=== PATIENT | female | born 1950 | race Caucasian/White ===

== ENCOUNTER 2016-12-15 17:58 | Emergency (ER) | payer MEDICARE, OTHER ==
[2016-12-15] MEDS ORDERED: diltiaZEM INJ 5 MG/ML VIAL IVP STA (18:23)
[2016-12-15] MEDS ORDERED: diltiaZEM INJ 5 MG/ML VIAL ONE (18:24)
[2016-12-15 18:35] LABS: BASOPHILS # (AUTO) 0.1 10^3/uL (0.0-0.1); EOSINOPHILS # (AUTO) 0.1 10^3/uL (0.0-0.7); EOSINOPHILS % (AUTO) 1.5 %; HGB - HEMOGLOBIN 14.4 g/dL (12.0-16.0); LYMPHOCYTES # (AUTO) 2.4 10^3/uL (1.5-3.5); LYMPHOCYTES % (AUTO) 26.4 %; MEAN CORPUSCULAR HGB CONC 33.5 g/dL (32.0-36.0); MEAN CORPUSCULAR VOLUME 98.6 fL (81.0-99.0); MEAN PLATELET VOLUME 8.4 fL (7.9-10.8); MONOCYTES # (AUTO) 0.8 10^3/uL (0.0-1.0); MONOCYTES % (AUTO) 8.2 %; NEUTROPHILS # (AUTO) 5.8 10^3/uL (1.5-6.6); NEUTROPHILS % (AUTO) 62.9 %; RED BLOOD COUNT 4.36 10^6/uL (4.20-5.40); RED CELL DISTRIBUTION WIDTH 12.8 % (12.0-15.0); UNCORRECTED WHITE BLOOD COUNT 9.2 x10^3/uL; WHITE BLOOD COUNT 9.2 x10^3/uL (4.8-10.8)
[2016-12-15 18:48] LABS: ALBUMIN/GLOBULIN RATIO 1.5 (1.0-2.2); BILIRUBIN,TOTAL 0.7 mg/dL (0.2-1.0); CALCIUM 9.6 mg/dL (8.5-10.3); CREATININE 0.8 mg/dL (0.4-1.0); POTASSIUM 3.5 mmol/L (3.5-5.0)
[2016-12-15] MEDS ORDERED: diltiaZEM INJ 125 MG in DEXTROSE 5% 100 ML IV STA (18:56)
--- NOTE | 2016-12-15 18:57 | ED Physician Documentation ---
PD HPI CHEST PAIN - Stated complaint Stated Complaint: CHEST PX - Chief complaint Chief Complaint: Cardiac - History obtained from History obtained from: Patient, Family - History of Present Illness Timing - onset: Today Timing - onset during: Rest Timing - duration: Hours (1.5) Timing - details: Abrupt onset Pain level max: 8 Pain level now: 8 Quality: Aching, Dull, Pain Radiation: Jaw, Neck Improved by: Nothing Worsened by: Other (nothing) Associated symptoms: Feeling faint / dizzy. No: Shortness of air, Diaphoresis, Nausea, Vomiting, General Weakness, Palpitations Similar symptoms before: Has not had sx before Recently seen: Not recently seen Review of Systems Ten Systems: 10 systems reviewed and negative Constitutional: denies: Fever, Chills Nose: denies: Rhinorrhea / runny nose, Congestion Throat: denies: Sore throat Cardiac: reports: Chest pain / pressure, Palpitations GI: denies: Abdominal Pain, Nausea, Vomiting, Diarrhea Skin: denies: Rash Musculoskeletal: denies: Neck pain, Back pain Neurologic: denies: Focal weakness, Numbness, Headache PD PAST MEDICAL HISTORY - Past Medical History Past Medical History: Yes Cardiovascular: Hypertension Respiratory: COPD - Past Surgical History Past Surgical History: No Ortho: Other - Present Medications Home Medications: Ambulatory Orders Medication Instructions Recorded Confirmed Atenolol 50 mg PO DAILY 10/28/13 10/13/15 Levothyroxine [Synthroid] 25 mg PO DAILY 10/28/13 10/13/15 Diltiazem HCl [Diltiazem ER] 240 mg PO 12/15/16 Losartan Potassium 50 mg PO DAILY 12/15/16 12/15/16 - Allergies Allergies/Adverse Reactions: Allergies Allergy/AdvReac Type Severity Reaction Status Date / Time erythromycin base Allergy Unknown Verified 10/13/15 17:24 codeine AdvReac Intermediate Rash Verified 10/28/13 19:57 - Social History Does the pt smoke?: No Smoking Status: Never smoker Does the pt drink ETOH?: Yes Does the pt have substance abuse?: No - Immunizations Immunizations are current?: No Immunizations: TDAP >10years/unknown PD ED PE NORMAL - Vitals Vital signs reviewed: Yes - General General: Alert and oriented X 3, No acute distress - HEENT HEENT: Moist mucous membranes - Neck Neck: Supple, no meningeal sign - Cardiac Cardiac: Strong equal pulses, Other (tachycardic) - Respiratory Respiratory: No respiratory distress, Clear bilaterally - Abdomen Abdomen: Soft, Non tender, Non distended - Back Back: No spinal TTP - Derm Derm: Warm and dry - Extremities Extremities: No edema, No calf tenderness / cord - Neuro Neuro: Alert and oriented X 3 - Psych Psych: Normal mood, Normal affect Results - Vitals Vitals: Vital Signs - 24 hr 12/15/16 12/15/16 12/15/16 18:14 19:41 19:58 Temperature 97.9 C H Heart Rate 118 H 142 H 151 H Respiratory 18 18 Rate Blood Pressure 170/119 H 149/93 H 154/106 H O2 Saturation 97 95 12/15/16 21:42 Temperature Heart Rate 89 Respiratory 18 Rate Blood Pressure 163/90 H O2 Saturation 96 Oxygen O2 Source Room air - EKG (time done) 1812 Rate: Rate (enter#) (185) Rhythm: Atrial fibrillation (RVR) QRS: LVH Ischemia: Other (repol abnormalities) Computer interpretation: Agree with computer 2202 Rate: Rate (enter#) (89) Rhythm: NSR [place]: LAD Intervals: Normal RI QRS: LVH Ischemia: Normal ST segments Computer interpretation: Agree with computer - Labs Labs: Laboratory Tests 12/15/16 12/15/16 12/15/16 18:25 18:25 18:25 WBC 9.2 RBC 4.36 Hgb 14.4 Hct 43.0 MCV 98.6 MCH 33.0 H MCHC 33.5 RDW 12.8 Plt Count 228 MPV 8.4 Neut # 5.8 Lymph # 2.4 [place] # 0.8 Eos # 0.1 Baso # 0.1 Absolute Nucleated RBC 0.00 Nucleated RBCs 0.0 Sodium 136 Potassium 3.5 Chloride 102 Carbon Dioxide 22 Anion Gap 12.0 BUN 21 H Creatinine 0.8 Estimated GFR (MDRD) 72 L Glucose 112 H Calcium 9.6 Total Bilirubin 0.7 AST 22 ALT 14 Alkaline Phosphatase 63 Troponin I < 0.04 Total Protein 7.0 Albumin 4.2 Globulin 2.8 Albumin/Globulin Ratio 1.5 Lipase 37 - Rads (name of study) cxr Radiology: Prelim report reviewed, EMP read contemporaneously, See rad report ( No acute cardiopulmonary disease seen. ) PD MEDICAL DECISION MAKING - ED course Complexity details: reviewed results, re-evaluated patient, considered differential, d/w patient, d/w family, d/w neuropsychology medical consultant ED course: Patient with Afib RVR and chest pain. Initial HR of 220bpm in the ED. Decreased to 140 with cardizem, then started on a cardizem gtt. No ICU beds available here. D/w Dr. Mendoza (cardiology) who [facility] and will consult in AM. 0 - Dr. Miller (hospitalist at [facility]) and graciously accepts in transfer. Patient converted to NSR as EMS arrived to transport the patient. As this is her initial experience with afib as far as she knows, will still transfer for further evaluation. This document was made in part using voice recognition software. While efforts are made to proofread this document, sound alike and grammatical errors may occur. Departure - Departure Disposition: 02 Transfer Acute Care Hosp Clinical Impression: Atrial fibrillation with RVR Condition: Stable Discharge Date/Time: 12/15/16 22:14
--- NOTE | 2016-12-15 19:16 | XRAY Preliminary Report ---
Exam: XR Chest 1 View IMPRESSION: No acute cardiopulmonary disease seen. [facility] SITE ID: [id number]
--- NOTE | 2016-12-15 19:19 | XRAY Report ---
EXAM: CHEST RADIOGRAPHY EXAM DATE: 12/15/2016 06:41 PM. CLINICAL HISTORY: Chest pain. COMPARISON: Chest 10/13/2015. TECHNIQUE: 1 view. FINDINGS: Lungs/Pleura: No acute pulmonary findings are seen. No pleural effusion or pneumothorax. Mediastinum: Within exam limitations, cardiomediastinal contour is normal. IMPRESSION: No acute cardiopulmonary disease seen. [facility] Referring Provider Line: [phone] SITE ID: [id number]
[2016-12-15 21:44] VITALS: BP 163/90
== END 2016-12-15 22:14 | disposition short-term general hospital (02) ==
LOC: ED 17:58
DX: I48.91 Unspecified atrial fibrillation (principal); I10 Essential (primary) hypertension
CPT/HCPCS: 36415; 71010; 80053; 83690; 84484; 85025; 93005; 96374; 96376; 99284; 99285

== ENCOUNTER 2016-12-15 22:12 | Outpatient (CLI) | payer OTHER, MEDICARE | END 2016-12-15 22:13 | disposition short-term general hospital (02) | LOC: EMS 22:12 | PROVIDERS: ATTEND Surgery | DX: R07.9 Chest pain, unspecified (principal); R55 Syncope and collapse | CPT/HCPCS: A0425; A0426 ==

== ENCOUNTER 2017-01-17 12:32 | Outpatient (CLI) | payer OTHER ==
--- NOTE | 2017-01-17 16:55 | Ultrasound Report ---
PELVIC ULTRASOUND: 01/17/2017 CLINICAL INDICATION: Postmenopausal bleeding. TECHNIQUE: Transabdominal pelvic ultrasound performed for global evaluation. Transvaginal pelvic ultrasound performed for detailed evaluation. Real-time scanning performed and static images obtained. The uterus is anteverted, measuring 4.6 x 4.0 x 2.3 cm. The endometrium is normal in thickness, measuring 3 mm. Trace fluid is seen in the endometrial canal. No focal myometrial lesion is seen. Neither ovary was confidently identified on transabdominal or transvaginal scanning. No adnexal mass or free fluid is appreciated. IMPRESSION: TRACE FLUID IN THE ENDOMETRIAL CANAL, BUT NO EVIDENCE OF ENDOMETRIAL THICKENING. NO ADNEXAL MASS OR FREE FLUID. JOB #: [id number] EXT JOB #: [id number] JEAN
== END 2017-01-17 12:33 | disposition home or self-care (01) ==
LOC: DI 12:32
PROVIDERS: ATTEND Physician Assistant Medical
DX: N95.0 Postmenopausal bleeding (principal)
CPT/HCPCS: 76830; 76856

== ENCOUNTER 2017-10-15 15:20 | Outpatient (CLI) | payer OTHER ==
[2017-10-15 18:56] LABS: BASOPHILS % (AUTO) 0.4 %; EOSINOPHILS # (AUTO) 0.1 10^3/uL (0.0-0.7); EOSINOPHILS % (AUTO) 1.4 %; HGB - HEMOGLOBIN 13.6 g/dL (12.0-16.0); LYMPHOCYTES # (AUTO) 1.5 10^3/uL (1.5-3.5); LYMPHOCYTES % (AUTO) 20.5 %; MEAN CORPUSCULAR HEMOGLOBIN 33.1 pg (27.0-31.0); MEAN CORPUSCULAR VOLUME 100.1 fL (81.0-99.0); MEAN PLATELET VOLUME 9.4 fL (7.9-10.8); MONOCYTES # (AUTO) 0.6 10^3/uL (0.0-1.0); NEUTROPHILS % (AUTO) 69.7 %; PLT - PLATELET COUNT 200 10^3/uL (130-450); RED CELL DISTRIBUTION WIDTH 13.3 % (12.0-15.0); WHITE BLOOD COUNT 7.1 x10^3/uL (4.8-10.8)
[2017-10-15 20:04] LABS: ALBUMIN 3.9 g/dL (3.2-5.5); ALBUMIN/GLOBULIN RATIO 1.3 (1.0-2.2); ALKALINE PHOSPHATASE 82 IU/L (42-121); ALT ALANINE AMINOTRANSFERASE 18 IU/L (10-60); AST ASPARTATE AMINOTRANSFERASE 25 IU/L (10-42); BILIRUBIN,TOTAL 0.7 mg/dL (0.2-1.0); BUN - BLOOD UREA NITROGEN 12 mg/dL (6-20); CALCIUM 9.8 mg/dL (8.5-10.3); CARBON DIOXIDE - CO2 27 mmol/L (21-32); CHLORIDE 98 mmol/L (101-111); CHOL/HDL RATIO 1.8 (<4.4); CHOLESTEROL 249 mg/dL; CREATININE 0.9 mg/dL (0.4-1.0); GFR - MDRD 62 (>89); GLUCOSE 100 mg/dL (70-100); HDL CHOLESTEROL 140 mg/dL; LDL CHOLESTEROL,CALCULATED 83 mg/dL; LDL/HDL RATIO 0.6 (<4.4); SODIUM 135 mmol/L (135-145); TOTAL PROTEIN 6.8 g/dL (6.7-8.2); VLDL CHOLESTEROL 26 mg/dL
== END 2017-10-15 15:21 ==
LOC: LAB.WCP 15:20
PROVIDERS: ATTEND Family Medicine
DX: K62.5 Hemorrhage of anus and rectum (principal); I48.0 Paroxysmal atrial fibrillation; E78.5 Hyperlipidemia, unspecified; E03.9 Hypothyroidism, unspecified
CPT/HCPCS: 36415; 80053; 80061; 83721; 84443; 85025

== ENCOUNTER 2017-10-17 08:00 | Outpatient (CLI) | payer OTHER | END 2017-10-17 08:01 | disposition home or self-care (01) | LOC: LAB.WCP 08:00 | PROVIDERS: ATTEND Family Medicine | DX: K62.5 Hemorrhage of anus and rectum (principal) | CPT/HCPCS: 83630; 87045; 87046; 87077; 87177; 87209 ==

== ENCOUNTER 2017-12-06 14:43 | Outpatient (CLI) | payer MEDICARE, OTHER ==
[2017-12-06 18:54] LABS: BASOPHILS # (AUTO) 0.1 10^3/uL (0.0-0.1); BASOPHILS % (AUTO) 1.3 %; EOSINOPHILS % (AUTO) 0.1 %; HGB - HEMOGLOBIN 13.3 g/dL (12.0-16.0); LYMPHOCYTES # (AUTO) 0.9 10^3/uL (1.5-3.5); MEAN CORPUSCULAR HEMOGLOBIN 34.3 pg (27.0-31.0); MEAN CORPUSCULAR HGB CONC 33.8 g/dL (32.0-36.0); MEAN CORPUSCULAR VOLUME 101.6 fL (81.0-99.0); MEAN PLATELET VOLUME 8.7 fL (7.9-10.8); MONOCYTES # (AUTO) 0.4 10^3/uL (0.0-1.0); MONOCYTES % (AUTO) 5.8 %; NEUTROPHILS # (AUTO) 5.7 10^3/uL (1.5-6.6); NEUTROPHILS % (AUTO) 79.8 %; PLT - PLATELET COUNT 184 10^3/uL (130-450); RED BLOOD COUNT 3.88 10^6/uL (4.20-5.40); RED CELL DISTRIBUTION WIDTH 14.1 % (12.0-15.0); WHITE BLOOD COUNT 7.2 x10^3/uL (4.8-10.8)
[2017-12-06 18:59] LABS: PT - PROTHROMBIN TIME 58.5 secs (9.9-12.6)
[2017-12-06 19:14] LABS: ALBUMIN 3.4 g/dL (3.2-5.5); ALBUMIN/GLOBULIN RATIO 1.2 (1.0-2.2); BILIRUBIN,TOTAL 0.9 mg/dL (0.2-1.0); CALCIUM 8.4 mg/dL (8.5-10.3); CREATININE 0.8 mg/dL (0.4-1.0); TOTAL PROTEIN 6.3 g/dL (6.7-8.2)
[2017-12-06 19:19] LABS: INR 5.5 (0.8-1.2)
== END 2017-12-06 14:44 | disposition home or self-care (01) ==
LOC: LAB.WCP 14:43
PROVIDERS: ATTEND Family Medicine
DX: K92.2 Gastrointestinal hemorrhage, unspecified (principal)
CPT/HCPCS: 36415; 80053; 85025; 85610

== ENCOUNTER 2018-05-02 16:44 | Outpatient (CLI) | payer MEDICARE ==
--- NOTE | 2018-05-02 21:13 | CT Report ---
Reason: COUGH, CHRONIC SINUSITUS Procedure Date: 05/02/2018 Accession Number: [id number] / [id number] Procedure: CT - Sinuses CPT Code: FULL RESULT: EXAM: CT SINUS EXAM DATE: 05/02/2018 05:15 PM. HISTORY: COUGH, CHRONIC SINUSITIS. COMPARISONS: None. TECHNIQUE: Routine multi-axial CT imaging performed through the sinuses. Iodinated IV contrast: None. Reconstructions: Multiplanar reformats. In accordance with CT protocol optimization, one or more of the following dose reduction techniques were utilized for this exam: automated exposure control, adjustment of mA and/or KV based on patient size, or use of iterative reconstructive technique. FINDINGS: RIGHT Frontal: Normal. Ethmoid: Normal. Maxillary: Mild mucosal thickening Sphenoid: Normal Drainage Pathways: The frontal recess, ostiomeatal complex and sphenoethmoidal recess are patent and normal. LEFT Frontal: Normal. Ethmoid: 1 x 0.6 cm calcification mild mucosal thickening Maxillary: Mild mucosal thickening Sphenoid: Normal. Drainage Pathways: The frontal recess, ostiomeatal complex and sphenoethmoidal recess are patent and normal. Nasal Cavity: Nasal septal curvature convex to the left with left nasal spur Osseous Structures: Unremarkable. Orbits: Unremarkable. Other: None. IMPRESSION: 1. Mild mucosal thickening in the bilateral maxillary, left ethmoid sinus. 2. Left ethmoid 1 x 0.6 cm calcification could represent calcified secretions versus osteoma [facility]
--- NOTE | 2018-05-03 09:39 | CT Report ---
Reason: COUGH, CHRONIC SINUSITUS Procedure Date: 05/02/2018 Accession Number: [id number] / [id number] Procedure: CT - Chest W/O CPT Code: FULL RESULT: EXAM: CT CHEST EXAM DATE: 05/02/2018 04:55 PM. CLINICAL HISTORY: Cough, chronic sinusitis. COMPARISONS: Reference is made to the chest radiograph 10/13/2015. TECHNIQUE: Routine helical CT imaging was performed through the chest. IV contrast: None. Reconstructions: Coronal and sagittal. In accordance with CT protocol optimization, one or more of the following dose reduction techniques were utilized for this exam: automated exposure control, adjustment of mA and/or KV based on patient size, or use of iterative reconstructive technique. FINDINGS: Lungs/Pleura: There is subtle bronchiectasis right middle lobe and lingula region with both regions also demonstrating distal interstitial reticulonodular interstitial thickening non-dependently. Pulmonary background demonstrates a mild amount of upper lobe predominant emphysema. There is no consolidation and there are no suspicious nodules. Mediastinum: The aortic arch is calcified, no aneurysm. There is three-vessel coronary calcifications. The noncontrast heart is otherwise normal. There is no mediastinal, hilar, internal mammary, axillary or visualized supraclavicular lymphadenopathy. No pericardial effusion. Bones: Unremarkable. Visualized Abdomen: Unremarkable. Other: None. IMPRESSION: Likely hypersensitivity pneumonitis versus less likely nonspecific interstitial pneumonitis. If the patient recently stopped smoking, residual respiratory bronchiolitis interstitial lung disease is also possible. Please note that there is no significant groundglass component on today's exam which speaks against NSIP and RBILD. [facility]
== END 2018-05-02 16:45 | disposition home or self-care (01) ==
LOC: DI 16:44
PROVIDERS: ATTEND Family Medicine
DX: J32.8 Other chronic sinusitis (principal); R05 Cough
CPT/HCPCS: 70486; 71250

== ENCOUNTER 2018-11-07 15:14 | Outpatient (CLI) | payer MEDICARE ==
--- NOTE | 2018-11-07 15:32 | XRAY Report ---
Reason: KNEE JOINT PAIN,LEFT Procedure Date: 11/07/2018 Accession Number: [id number] / [id number] Procedure: WCP - Knee 2 View LT CPT Code: FULL RESULT: EXAM: LEFT KNEE RADIOGRAPHY EXAM DATE: 11/07/2018 03:08 PM. CLINICAL HISTORY: Knee pain and swelling COMPARISON: None. TECHNIQUE: 3 views. FINDINGS: Bones: Small superior patellar bone spur at insertion site of the quadriceps mechanism. No other bony findings. Joints: No significant osteoarthritis. No joint effusion. Soft Tissues: Normal. No soft tissue swelling. IMPRESSION: No acute abnormality. [facility]
== END 2018-11-07 15:15 | disposition home or self-care (01) ==
LOC: DI.WCP 15:14
PROVIDERS: ATTEND Family Medicine
DX: M25.562 Pain in left knee (principal)

== ENCOUNTER 2018-12-06 11:53 | Inpatient (IN) | payer MEDICARE ==
[2018-12-06] MEDS ORDERED: IPRATROPIUM/ALBUTEROL 3 ML NEB INH STA (12:05)
[2018-12-06] MEDS ORDERED: methylPREDNISolone SUCCINATE 125 MG/2 ML VIAL IVP STA (12:12)
--- NOTE | 2018-12-06 12:14 | ED Physician Documentation ---
PD HPI DYSPNEA - Stated complaint Stated Complaint: SOA/THROAT PX - Chief complaint Chief Complaint: Resp - History obtained from History obtained from: Patient, Family - History of Present Illness Timing - onset: Yesterday Timing - onset during: Rest Timing - duration: Days (2) Timing - details: Gradual onset Pain level max: 6 Pain level now: 4 Inciting event(s): No: URI, Allergic rxn/anaphylaxis, Exercise, Exposure (ie smoke), FB / choking, Immobilization/travel, Emotional event Improved by: Other (albuterol helped mildly this am) Worsened by: Exertion Associated symptoms: Cough, Wheezing, Other (states her throat is sore). No: Fever, Hemoptysis, Chest pain / discomfort, Palpitations, Diaphoresis, Bilateral edema, Unilateral edema, Anxiety - Additional information Additional information: 68-year-old female states that she has had difficulty breathing since yesterday. History of COPD and dementia. Also complained of a sore throat. No fevers. Initial O2 sat was 70% on RA. Review of Systems Ten Systems: 10 systems reviewed and negative Constitutional: denies: Fever, Chills Ears: denies: Ear pain Nose: denies: Rhinorrhea / runny nose, Congestion Cardiac: denies: Chest pain / pressure, Palpitations, Calf pain GI: denies: Vomiting, Diarrhea : denies: Dysuria Skin: denies: Rash Musculoskeletal: denies: Neck pain, Back pain Neurologic: denies: Headache PD PAST MEDICAL HISTORY - Past Medical History Past Medical History: Yes Cardiovascular: Hypertension Respiratory: COPD - Past Surgical History Past Surgical History: No Ortho: Other - Present Medications Home Medications: Ambulatory Orders Medication Instructions Recorded Confirmed Losartan Potassium 50 mg PO DAILY 12/15/16 12/06/18 dilTIAZem HCl [Diltiazem ER] 240 mg PO DAILY 12/15/16 12/06/[address] [Voltaren] 75 mg PO BIDWM 12/06/18 12/06/18 Levothyroxine Sodium [Synthroid] 50 mcg PO QDAC 12/06/18 12/06/18 Metoprolol Tartrate [Lopressor] 50 mg PO BID 12/06/18 12/06/18 QUEtiapine [SEROquel] 25 mg PO BID 12/06/18 12/06/18 - Allergies Allergies/Adverse Reactions: Allergies Allergy/AdvReac Type Severity Reaction Status Date / Time erythromycin base Allergy Unknown Verified 12/06/18 12:03 codeine AdvReac Intermediate Rash Verified 12/06/18 12:03 - Social History Does the pt smoke?: No Smoking Status: Never smoker Does the pt drink ETOH?: Yes Does the pt have substance abuse?: No - Immunizations Immunizations are current?: No Immunizations: TDAP >10years/unknown PD ED PE NORMAL - Vitals Vital signs reviewed: Yes - General General: Alert and oriented X 3, No acute distress, Other (Audible gurgling) - HEENT HEENT: PERRL, Moist mucous membranes, Other (Mild posterior oropharyngeal erythema without tonsillar exudates. Uvula midline. No trismus.) - Neck Neck: Supple, no meningeal sign, No adenopathy - Cardiac Cardiac: RRR - Respiratory Respiratory: Other (Mild respiratory distress with rhonchi bilaterally) - Abdomen Abdomen: Soft, Non tender, Non distended - Derm Derm: Warm and dry, No rash - Extremities Extremities: No edema - Neuro Neuro: Alert and oriented X 3 - Psych Psych: Normal mood, Normal affect Results - Vitals Vitals: Vital Signs - 24 hr 12/06/18 12/06/18 12/06/18 11:56 12:30 12:38 Temperature 35.8 C L Heart Rate 107 H 106 H 108 H Respiratory 26 H 25 H 24 Rate Blood Pressure 119/105 H 136/86 H O2 Saturation 70 L 89 L 12/06/18 12/06/18 13:58 14:00 Temperature Heart Rate 113 H 109 H Respiratory 24 26 H Rate Blood Pressure 137/74 H O2 Saturation 90 L Oxygen O2 Source Venturi mask - EKG (time done) 1310 Rate: Rate (enter#) (108) Rhythm: Sinus tachycardia [place]: Anterior hemiblock (LAFB) QRS: LVH Ischemia: Normal ST segments - Labs Labs: Laboratory Tests 12/06/18 12/06/18 12/06/18 12:21 12:21 12:21 WBC 29.2 H RBC 3.91 L Hgb 14.0 Hct 39.7 MCV 101.5 H MCH 35.8 H MCHC 35.3 RDW 12.4 Plt Count 367 MPV 9.7 Neut # (Auto) Not Reportable Lymph # (Auto) Not Reportable [place] # (Auto) Not Reportable Eos # (Auto) Not Reportable Baso # (Auto) Not Reportable Absolute Nucleated RBC Not Reportable Total Counted 100 Band Neuts % (Manual) 3 Abnorm Lymph % (Manual) 0 Nucleated RBC % Not Reportable Neutrophils # (Manual) 26.6 H Lymphocytes # (Manual) 0.9 L Monocytes # (Manual) 1.8 H Eosinophils # (Manual) 0.0 Basophils # (Manual) 0.0 Differential Comment MANUAL DIFFERENTIAL WBC Morphology NORMAL APPEARANCE Platelet Estimate NORMAL (130-450,000) Platelet Morphology NORMAL APPEARANCE RBC Morph Micro Appear 1+ MACROCYTOSIS Sodium 129 L Potassium 4.2 Chloride 85 L Carbon Dioxide 25 Anion Gap 19.0 H BUN 33 H Creatinine 0.8 Estimated GFR (MDRD) 71 L Glucose 173 H Lactic Acid Calcium 9.6 Total Bilirubin 0.8 AST 24 ALT 17 Alkaline Phosphatase 101 Troponin I < 0.04 B-Natriuretic Peptide Total Protein 7.3 Albumin 3.9 Globulin 3.4 Albumin/Globulin Ratio 1.1 Lipase 25 Group A Strep Rapid 12/06/18 12/06/18 12/06/18 12:21 13:12 13:45 WBC RBC Hgb Hct MCV MCH MCHC RDW Plt Count MPV Neut # (Auto) Lymph # (Auto) [place] # (Auto) Eos # (Auto) Baso # (Auto) Absolute Nucleated RBC Total Counted Band Neuts % (Manual) Abnorm Lymph % (Manual) Nucleated RBC % Neutrophils # (Manual) Lymphocytes # (Manual) Monocytes # (Manual) Eosinophils # (Manual) Basophils # (Manual) Differential Comment WBC Morphology Platelet Estimate Platelet Morphology RBC Morph Micro Appear Sodium Potassium Chloride Carbon Dioxide Anion Gap BUN Creatinine Estimated GFR (MDRD) Glucose Lactic Acid 2.8 H Calcium Total Bilirubin AST ALT Alkaline Phosphatase Troponin I B-Natriuretic Peptide 83 Total Protein Albumin Globulin Albumin/Globulin Ratio Lipase Group A Strep Rapid Negative - Rads (name of study) cxr Radiology: Prelim report reviewed, EMP read contemporaneously, See rad report (no acute disease), Other (appears to have B LL infiltrates to me.) PD MEDICAL DECISION MAKING - ED course Complexity details: reviewed results, re-evaluated patient, considered diff erential, d/w patient, d/w family, d/w new vehicle sales consultant ED course: 68-year-old female with a history of COPD and dementia. Had significant hypoxia, what appeared to be bilateral lower lobe infiltrates to me. A leukocytosis of almost 30,000 and elevated lactate. Blood cultures are drawn. IV antibiotics given. IV fluids given. Given nebulizer treatments and IV steroids. Discussed the case with Dr. Cintron, hospitalist who accepts This document was made in part using voice recognition software. While efforts are made to proofread this document, sound alike and grammatical errors may occur. - Sepsis Event Current Stage of Sepsis: Sepsis Possible source of Sepsis: Pulmonary Mental/Cognitive Status: Confused Reason for not giving 30ml/kg crystalloid fluids: Bolus previously given Capillary refill: Less than 2 seconds Peripheral Pulse Strength: 3+ Normal Peripheral Pulse Location: Radial Bedside ultrasound performed: No Departure - Departure Disposition: 66 [facility] DC/Xfer Clinical Impression: COPD with exacerbation, Hypoxia Pneumonia Qualifiers: Pneumonia type: due to unspecified organism Laterality: unspecified laterality Lung location: unspecified part of lung Qualified Code(s): J18.9 - Pneumonia, unspecified organism Sepsis Qualifiers: Sepsis type: sepsis due to unspecified organism Qualified Code(s): A41.9 - Sepsis, unspecified organism Condition: Stable
[2018-12-06 12:35] LABS: BASOPHILS % (AUTO) 0.4 %; EOSINOPHILS % (AUTO) 0.1 %; LYMPHOCYTES % (AUTO) 0.9 %; MEAN CORPUSCULAR HEMOGLOBIN 35.8 pg (27.0-31.0); MEAN CORPUSCULAR HGB CONC 35.3 g/dL (32.0-36.0); MEAN CORPUSCULAR VOLUME 101.5 fL (81.0-99.0); MEAN PLATELET VOLUME 9.7 fL (7.9-10.8); MONOCYTES % (AUTO) 4.8 %; NEUTROPHILS % (AUTO) 92.9 %; PLT - PLATELET COUNT 367 10^3/uL (130-450); RED BLOOD COUNT 3.91 10^6/uL (4.20-5.40); RED CELL DISTRIBUTION WIDTH 12.4 % (12.0-15.0); WHITE BLOOD COUNT 29.2 x10^3/uL (4.8-10.8)
--- NOTE | 2018-12-06 12:40 | XRAY Report ---
Reason: dyspnea Procedure Date: 12/06/2018 Accession Number: [id number] / [id number] Procedure: XR - Chest 1 View X-Ray CPT Code: 71085 FULL RESULT: EXAM: CHEST RADIOGRAPHY EXAM DATE: 12/06/2018 12:16 PM. CLINICAL HISTORY: Dyspnea. COMPARISON: CHEST 1 VIEW 12/15/2016 6:46 PM. TECHNIQUE: 1 view. FINDINGS: Lungs/Pleura: No focal opacities evident. No pleural effusion. No pneumothorax. Mediastinum: Within exam limitations, the cardiomediastinal contour is normal. Other: No acute osseous abnormality. There are old healed fracture deformities of the left posterior seventh and eighth ribs. IMPRESSION: No acute cardiopulmonary abnormality. [facility]
[2018-12-06 12:44] LABS: ALBUMIN 3.9 g/dL (3.2-5.5); ALBUMIN/GLOBULIN RATIO 1.1 (1.0-2.2); BILIRUBIN,TOTAL 0.8 mg/dL (0.2-1.0); CALCIUM 9.6 mg/dL (8.5-10.3); CREATININE 0.8 mg/dL (0.4-1.0); TOTAL PROTEIN 7.3 g/dL (6.7-8.2)
[2018-12-06] MEDS ORDERED: MAG HYDROX/AL HYDROX/SIMETH 30 ML UDC PO STA (12:55)
[2018-12-06 13:09] LABS: ABNORMAL LYMPHS % (MANUAL) 0 %
[2018-12-06] MEDS ORDERED: ALBUTEROL NEB 2.5 MG/3 ML INH STA (13:20)
[2018-12-06] MEDS ORDERED: levoFLOXacin 750 MG/150 ML 750 MG/150 ML BAG IV ONE (13:20)
[2018-12-06] MEDS ORDERED: SODIUM CHLORIDE 0.9% 1,000 ML IV ONE ×2 (13:21)
[2018-12-06 13:25] LABS: BAND NEUTROPHILS % (MANUAL) 3 %; LYMPHOCYTES # (MANUAL) 0.9 10^3/uL (1.5-3.5); LYMPHOCYTES % (MANUAL) 3 %; MONOCYTES # (MANUAL) 1.8 10^3/uL (0.0-1.0); NEUTROPHILS # (MANUAL) 26.6 10^3/uL (1.5-6.6); NEUTROPHILS % (MANUAL) 88 %
[2018-12-06 13:28] LABS: PLATELET ESTIMATE, MANUAL NORMAL (130-450,000) (NORMAL); PLATELET MORPHOLOGY NORMAL APPEARANCE (NORMAL); RBC MORPHOLOGY (MULTIPLE) 1+ MACROCYTOSIS (NORMAL)
[2018-12-06 13:29] LABS: DIFFERENTIAL COMMENT MANUAL DIFFERENTIAL
[2018-12-06] MEDS ORDERED: MORPHINE 2 MG/ML CARPUJECT IVP STA (13:51)
[2018-12-06] MEDS ORDERED: SODIUM CHLORIDE 0.9% IV STA (14:13)
[2018-12-06] MEDS ORDERED: ACETAMINOPHEN 325 MG TABLET PO PRN (14:50)
[2018-12-06] MEDS ORDERED: MORPHINE 2 MG/ML CARPUJECT IVP PRN (14:50)
--- NOTE | 2018-12-06 15:05 | HISTORY & PHYSICAL EXAMINATION ---
Chief Complaint - Chief Complaint Chief Complaint: headache, cough, sob History of Present Illness - Admitted From Admitted From:: Home/emergency room - History Obtained From Records Reviewed: Nohelia History obtained from: reyes Lopez, Dr. Simms Exam Limitations: Patient has encephalopathy from illness - History of Present Illness HPI Comment/Other: She is a 68-year-old white female who assist of alcohol abuse, dementia, bronchiectasis and chronic sinusitis who called her PCP office today with difficulty breathing, cough, feeling ill, sore throat today, with a headache yesterday. She was using her inhalers without relief. She was instructed to drive to the emergency room or consider 911. She was seen by Dr. Gregory Simms. Initial O2 sat was 70% on room air. Heart rate was 113, blood pressure was 119/105. Temperature 35.8. She is alert and oriented with gurgling breath sounds, mild respiratory distress, breath and rhonchi bilaterally. Her white cell count was 29,000. Her chest x-ray was read as negative by radiology but was interpreted as having bilateral lower lobe infiltrates with Dr. Brown. Urinalysis has not been done yet. Her lactic acid is 2.8. Troponin is less than 0.04. BNP is 83. Her states that she has been eating poorly for over 6 months. She is just lost her appetite. She does not actually cough on a regular basis but has dyspnea on exertion on a daily basis. She spends most of her time sitting in front of the TV. For the last 4 months she has been complaining of sinus pressure and drainage. It drips down the back of her throat and taste bad. In the last few days she has been complaining of not feeling well but was very nonspecific about her complaints. She just kept on telling her "I feel bad". Yesterday she had a severe cough, sore throat. Every time she coughs she felt like the top of her head was going of explode off the top of her head. She did not have a high fever. When he touched her she was not sweaty or hot. Her appetite really took an even worse turn. She has not wanted to eat anything. No change in bowel habits. I am admitting the patient to inpatient status as probable sepsis, and as of yet unknown pathogen, but most likely lungs. History - Past Medical History Cardiovascular: reports: Hypertension, Atrial fibrillation (Paroxysmal, with OBV stay Early 12/16/16 after being transferred there from here. Echo with LVEF 60 to 65%. Wall motion normal. Right ventricle normal. Borderline LAE. No significant valvular heart disease. She was anticoagulated but Coumadin stopped when she had a GI bleed.) Respiratory: reports: COPD (FEV1 1.746, FVC 2.491, FEV/FVC 70% 05/07/11), Other (Bronchiectasis, Subtle, right middle lobe and lingular region on chest CT April 2018) Neuro: reports: Dementia (Has been getting slightly worse. She will scream and yell her . Get very agitated at times. Put on Seroquel October [address] Garcia) GI: reports: GI bleed (Black tarry stools while on Coumadin this started early September 2017 Coumadin stopped because of dementia, did not follow-up with EGD and colonoscopy. Initially was because she was not feeling well. 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 Ultrasound showed 3 mm fluid level in the endometrial cavity. Bleeding started 2 weeks after Pradaxa.) Psych: reports: Depression, Anxiety Musculoskeletal: reports: Other (Ground-level fall with displaced fracture of fourth metatarsal November 2017) Derm: reports: Other (Actinic keratoses of face. Hx of basal cell ca right NL fold, SK. Seen by [facility] in the past) MRSA Hx?: No - Past Surgical History Ortho: reports: Other (Left wrist percutaneous pinning 2013) /CUSTOMER ACCOUNT TECHNICIAN: reports: Dilation and currettage - Family & Social History Family History Comment/Other: Mom is w history of heart disease, hypertension, osteoporosis, alcoholism, COPD. Dad is w a history of coronary artery disease with angina, alcoholism. 1 Brother has alcoholism, 1 brother is healthy w/o any medical problems. 2 sons are healthy Living arrangement: At home Living Situation: With spouse/s.o. Social History Notes: Former smoker. Started at the age of 16, smoked 1 pack/day and quit in 2007 which leaves her with an approximately 40-year pack history. Has never used recreational substances. alcohol abuse 2-3 beers or hard drinks daily - Substance History Use: Uses substance without health or social issues: Alcohol Use Issues: Intoxication, Mood Disorder Abuse: Recurrent use of substance despite neg consequences: Alcohol Abuse Issues: Intoxication, Anxiety Disorder, Mood Disorder - POLST Patient has POLST: No POLST Status: Full Code Meds/Allgy - Home Medications Home Medications: Ambulatory Orders Medication Instructions Recorded Confirmed Losartan Potassium 50 mg PO DAILY 12/15/16 12/06/18 dilTIAZem HCl [Diltiazem ER] 240 mg PO DAILY 12/15/16 12/06/[address] [Voltaren] 75 mg PO BIDWM 12/06/18 12/06/18 Levothyroxine Sodium [Synthroid] 50 mcg PO QDAC 12/06/18 12/06/18 Metoprolol Tartrate [Lopressor] 50 mg PO BID 12/06/18 12/06/18 QUEtiapine [SEROquel] 25 mg PO BID 12/06/18 12/06/18 - Allergies Allergies/Adverse Reactions: Allergies Allergy/AdvReac Type Severity Reaction Status Date / Time erythromycin base Allergy Unknown Verified 12/06/18 12:03 codeine AdvReac Intermediate Rash Verified 12/06/18 12:03 Review of Systems - Constitutional Constitutional: reports: Fatigue, Malaise, Weakness, Poor appetite. denies: Fever, Chills - Eyes Eyes: denies: Pain, Irritation, Amaurosis, Blurred vision, Spots in vision, Field loss, Vision loss - Ears, Nose & Throat Ears, Nose & Throat: reports: Hearing loss, Nasal pain, Nasal discharge, Nasal congestion, Postnasal drainage, Sore throat. denies: Ear pain, Hearing aids, Tinnitus, Vertigo, Nosebleeds, Nasal obstruction, Dentures, Hoarseness, Mouth lesions, Bleeding gums - Cardiovascular Cariovascular: reports: Irregular heart rate (Sometimes not recently.), Palpitations (Sometimes), Chest pain (Last night her chest was burning. Not like when it used to radiate up into her jaw with her A. fib. She took 2 Tums and it made her feel better and she went to sleep.), Exertional dyspnea, Decr. exercise tolerance. denies: Lightheadedness, Syncope - Respiratory Respiratory: reports: Cough (Starting a day and a half ago), Wheezing, SOB at rest, SOB with exertion. denies: Sputum production, Snoring, Hemoptysis, Apnea, Stridor - Gastrointestinal Gastrointestinal: reports: Other (She had rectal bleeding in 2018, a month later had black tarry stools for 2 weeks. She refused to do the prep. Did see the surgeon for a preop visit but never followed through.). denies: Abdominal pain, Abdominal distention, Constipation, Diarrhea, Change in bowel habits - Genitourinary Genitourinary: denies: Dysuria, Frequency, Urgency, Hematuria, Incontinence, Flank pain - Musculoskeletal Musculoskeletal: reports: Back pain (Was off and on in the past few years. But in the last few months she is not complaining of any sciatica.), Muscle weakness (Diffuse. Just does not have any energy and sits all day long). denies: Muscle pain, Muscle aches, Limited range of motion - Integumentary Integumentary: denies: Rash, Pruritis, Lesions, Dryness - Neurological Neurological: reports: General weakness, Memory problems (Dementia has been progressive over the last couple of years. In the last few months she is been gotten very depressed, belligerent. She yells and screams at them. She was started on Seroquel twice a day and is really not making much of a difference. She has been drinking since the age of 35. Even though she is no longer able to go out and get her on alcohol, he still faithfully buys her alcohol every day.), Pre-existing deficit, Incoordination. denies: Focal weakness, Headache, Dizziness, Numbness, Seizures, Slurred speech - Psychiatric Psychiatric: reports: Depression, Anxiety, Other (As her memory loss is progress ed she is gotten more more angry, more depressed. In the last few months, especially the last 6 months, she has been expressing a desire to go live in a long-term facility. She seems to be recognizing how much of a burden she is becoming on him and keeps him telling him "just put me in a care home and leave me alone".) - Endocrine Endocrine: denies: Polyuria, Polydypsia, Polyphagia - Hematologic/Lymphatic Hematologic/Lymphatic: reports: Bruising. denies: Anemia, Petechiae, Blood clots, Lymphadenopathy Prior Level of Functionality: She is to garden, drive, be very active with socializing with friends. She is gradually restricted her life over the last couple of years to the point that she spends most of her time sitting, front of the TV, and walking within her house but rarely leaving the house unless he prompted her to. She is still able to feed herself and dress herself but he does everything on such as cooking and cleaning, taking her to the doctor's, and driving. Exam - Vital Signs Vital Signs: Vital Signs x48h Temp Pulse Resp BP Pulse Ox 12/06/18 14:00 109 H 26 H 137/74 H 90 L 12/06/18 13:58 113 H 24 12/06/18 12:38 108 H 24 12/06/18 12:30 106 H 25 H 136/86 H 89 L 12/06/18 11:56 35.8 C L 107 H 26 H 119/105 H 70 L - Physical Exam General Appearance: positive: Alert, Moderate distress, Other (sitting upright, tripoding in bed. Hates the mask and RT is struggling to maintain her sats w a mask bc patient keeps taking it off) Eyes Bilateral: positive: PERRL, EOMI ENT: positive: Dry mucous membranes Neck: positive: No JVD. negative: Stiff neck, Carotid bruit Respiratory: positive: Chest non-tender, Other (very quiet lung sounds w most of sounds coming from). negative: Wheezes, Rales, Rhonchi Cardiovascular: positive: Tachycardia, Systolic murmur. negative: Gallop/S4, Friction rub Peripheral Pulses: positive: 1+ Abdomen: positive: Non-tender, No organomegaly, Nml bowel sounds, No distention Skin: positive: Warm, Dry Extremities: positive: Full ROM, No pedal edema Neurologic/Psychiatric: positive: Oriented x3, CN's nml (2-12), Motor nml, Weakness, Other (She is oriented to person place and time but clearly confused. Combative, at times not making sense with regards to her rationale for wanting to leave. Not seeming to be aware how sick she is. No). negative: Mood/affect nml Sepsis Event Note (H) - Evaluation Current Stage of Sepsis: Sepsis Possible source of Sepsis: positive: Pulmonary - Sepsis Criteria Sepsis Criteria: Recorded Temperature greater than 38.3C or Less than 36C, Recorded Heart Rate greater than 90 bpm, Recorded Respiratory Rate greater than 20, Respiratory: Increasing oxygen requirements, WBC count greater than 10% bands Conclusion/Plan - Problem List (1) Sepsis Conclusion/Plan: This lady presents is a 68-year-old former smoker who is a current alcohol abuser and leaves her immunocompromise, with a sudden complaints of frontal sinus headache, chest tightness and burning, new cough for 24 to 48 hours, sore throat, superimposed on sinus infection for the last 4 months. She meets sepsis criteria with a relatively normal chest x-ray, and negative belly exam. Lactic acid is 2.8.CT of sinus April 2018 no had mild mucosal thickening in the bilateral maxillary and left ethmoid sinus. But nothing that was severe. CT of chest done the same day as her sinuses show subtle bronchiectasis of the right middle lobe and lingular region. Pulmonary background demonstrated a mild amount of upper lobe predominant emphysema. Plan: Inpatient admission Sepsis protocol Trend lactic acid levels Broad-spectrum empiric antibiotic for an unknown pathogen although I suspect this to be pulmonary or ENT by ROS. Blood cultures have been done in ER and will be reviewed once ready See if we can get this demented agitated patient to give us a UA Advance care planning discussion documented in separate note with Qualifiers: Sepsis type: sepsis due to unspecified organism Qualified Code(s): A41.9 - Sepsis, unspecified organism (2) Acute respiratory failure with hypoxemia Conclusion/Plan: Due to a combination of her COPD and most likely lung source pathogen for sepsi s. Although was not visible on chest x-ray and BNP indicates no congestive heart failure. She is a full code. Her does want her intubated if she needs to be. We will monitor closely over the next few hours. If it warrants, and hypoxia is not improving, and/or she is not cooperating, she will be transferred to ICU for BiPAP initially and then intubation if necessary. (3) COPD with exacerbation Conclusion/Plan: Broad-spectrum antibiotic coverage per sepsis protocol. Not necessarily pulmonary pathogen. Fixed dose DuoNeb. IV steroids Sputum pathogen if able to be brought up by patient Oxygen by nasal cannula or facemask. Patient is a full code, she will need to be intubated if required (4) Alcoholic dementia Conclusion/Plan: She has never gone through withdrawal according to her . But her drinking has been steady since the age of 35. She has been recently placed on Seroquel without success. Plan: Already escalating in the emergency room and on MedSurg because she refused to do treatment. She is ripping off the mask and demanding to go home Thiamine, folate, B12, magnesium via CIWA protocol Haldol 1 mg IV push every 8 hours Resume her usual Seroquel Monitor vitals and agitation to make sure she is not going through withdrawal I have strongly recommended that her stop buying her alcohol. If she is going to go through withdrawal during this hospitalization, do not prolong the state if he buys or more alcohol again. Qualifiers: Dementia behavioral disturbance: with behavioral disturbance Qualified Code(s): F10.27 - Alcohol dependence with alcohol-induced persisting dementia (5) Hyponatremia Conclusion/Plan: This is in a patient who has history of alcohol abuse. She is never been documented as having cirrhosis, ascites. However, she had black tarry stools a year ago and she may have undiagnosed esophageal varices. Sodium could be related to cirrhosis or could be related to dehydration and patient has poor p.o. intake. Plan: Hydrate with IVP and repeat BMP in the morning. If hyponatremia worsens, do further work-up. (6) History of atrial fibrillation Conclusion/Plan: She has had intermittent, paroxysmal atrial fibrillation. Dates back to a decade of palpitations but not formally seen until an ER visit in 2017. Transferred from here to [facility] since we had no ICU beds. CO ruled out. Today troponins are negative. She is in sinus tachycardia on her EKG. She does have a chads Vascor of 3 but she refuses anticoagulation. In view the fact that she may have an unknown GI pathology with bleeding, it is probably prudent decision. I will resume her usual Cardizem but avoid beta-fer since I am going to be giving her beta agonist. (7) HTN (hypertension) Conclusion/Plan: She became hypotensive in the emergency room with her sepsis. I will wait till later in the evening once her blood pressure stabilized to give her her Cardizem for her heart rate. We will hold off on losartan and metoprolol. Qualifiers: Hypertension type: essential hypertension Qualified Code(s): I10 - Essential (primary) hypertension (8) Alcohol abuse Conclusion/Plan: As per treatment in alcoholic dementia. - Lab Results Fish Bones: 12/06/18 12:21 12/06/18 12:21 - Diagnostic Imaging Results Diagnostic Imaging Results: positive: Final report reviewed Diagnostic Imaging Results Comments: CHEST RADIOGRAPHY EXAM DATE: 12/06/2018 12:16 PM. CLINICAL HISTORY: Dyspnea. COMPARISON: CHEST 1 VIEW 12/15/2016 6:46 PM. TECHNIQUE: 1 view. FINDINGS: Lungs/Pleura: No focal opacities evident. No pleural effusion. No pneumothorax. Mediastinum: Within exam limitations, the cardiomediastinal contour is normal. Other: No acute osseous abnormality. There are old healed fracture deformities of the left posterior seventh and eighth ribs. IMPRESSION: No acute cardiopulmonary abnormality LEFT KNEE RADIOGRAPHY EXAM DATE: 11/07/2018 03:08 PM. CLINICAL HISTORY: Knee pain and swelling COMPARISON: None. TECHNIQUE: 3 views. FINDINGS: Bones: Small superior patellar bone spur at insertion site of the quadriceps mechanism. No other bony findings. Joints: No significant osteoarthritis. No joint effusion. Soft Tissues: Normal. No soft tissue swelling. IMPRESSION: No acute abnormality. - EKG Results EKG Interpreted Independently: No EKG Findings: Sinus tachycardia, left anterior fascicular block, nonspecific ST-T wave vela es. Core Measures - Anticipated LOS I expect patient to be DC'd or transferred within 96 hours.: Yes - DVT/VTE - Prophylaxis VTE/DVT Device ordered at admit?: Yes
[2018-12-06] MEDS: CEFEPIME 2 GM in SODIUM CHLORIDE 0.9% MINIBAG 100 ML IV SCH (15:36)
[2018-12-06] MEDS ORDERED: HYDROCORTISONE SUCCINATE 100 MG/2 ML VIAL IVP SCH (16:00)
[2018-12-06] MEDS ORDERED: HALOPERIDOL 5 MG/ML VIAL IVP PRN (16:43)
[2018-12-06] MEDS ORDERED: MAGNESIUM SULFATE 2 GRAM 2 GM/50 ML BAG IV ONE (16:46)
[2018-12-06] MEDS ORDERED: VANCOMYCIN INJ 1 GM in SODIUM CHLORIDE 0.9% 250 ML IV SCH (17:00)
[2018-12-06] MEDS: SODIUM CHLORIDE FLUSH 0.9% 10 ML SYRINGE IVP SCH ×2 (17:05→19:55)
[2018-12-06] MEDS ORDERED: MULTIVITAMIN 10 ML, THIAMINE INJ 100 MG, FOLIC ACID INJ 1 MG in D5.45NS W/20 MEQ KCL 1,... IV ONE (17:18)
[2018-12-06 19:21] LABS: MUDS CUTOFF CONCENTRATIONS CUTOFF CONC BELOW:
[2018-12-06 19:35] LABS: AMPHETAMINE SCREEN,URINE NEGATIVE (NEGATIVE); BENZODIAZEPINES SCREEN, URINE NEGATIVE (NEGATIVE); COCAINE SCREEN URINE NEGATIVE (NEGATIVE); METHADONE SCREEN, URINE NEGATIVE (NEGATIVE); METHAMPHETAMINES SCREEN, URINE NEGATIVE (NEGATIVE); OPIATE SCREEN, URINE POSITIVE (NEGATIVE); OXYCODONE SCREEN, URINE NEGATIVE (NEGATIVE); PROPOXYPHENE SCREEN, URINE NEGATIVE (NEGATIVE); TRICYCLIC ANTIDEPRESSANT,URINE POSITIVE (NEGATIVE)
[2018-12-06] MEDS: metroNIDAZOLE 500 MG/100 ML 500 MG/100 ML BAG IV SCH (19:54)
[2018-12-06] MEDS ORDERED: SODIUM CHLORIDE FLUSH 0.9% 10 ML SYRINGE ONE ×2 (19:58→20:36)
[2018-12-06] MEDS: IPRATROPIUM 0.2 MG/ML NEB INH SCH (20:12)
[2018-12-06] MEDS: ALBUTEROL NEB 2.5 MG/3 ML INH PRN (20:12)
[2018-12-06 20:21] LABS: BILIRUBIN,URINE NEGATIVE (NEGATIVE); GLUCOSE, URINE (UA) 500 mg/dL (NEGATIVE); KETONES,URINE (UA) 15 mg/dL (NEGATIVE); LEUKOCYTE ESTERASE, URINE NEGATIVE (NEGATIVE); NITRITE,URINE NEGATIVE (NEGATIVE); OCCULT BLOOD,URINE SMALL (NEGATIVE); PROTEIN,URINE NEGATIVE (NEGATIVE); UROBILINOGEN,URINE 0.2 (NORMAL) E.U./dL (NORMAL)
[2018-12-06 20:22] LABS: CLARITY,URINE CLEAR (CLEAR)
[2018-12-06 20:26] LABS: RBC,URINE 0-5 /HPF (0-5); SQUAMOUS EPITHELIAL CELL,UR FEW Squamous (<= Few)
[2018-12-06 20:27] LABS: BACTERIA,URINE None Seen /HPF (None Seen)
[2018-12-06] MEDS: MORPHINE 2 MG/ML CARPUJECT IVP PRN (20:51)
[2018-12-06] MEDS: VANCOMYCIN INJ 1 GM in SODIUM CHLORIDE 0.9% 250 ML IV SCH (21:07)
[2018-12-06] MEDS: QUEtiapine 25 MG TABLET PO SCH (21:38)
[2018-12-06] MEDS: methylPREDNISolone SUCCINATE 40 MG/ML VIAL IVP SCH (21:39)
[2018-12-07] MEDS: CEFEPIME 2 GM in SODIUM CHLORIDE 0.9% MINIBAG 100 ML IV SCH ×4 (00:40→23:36)
[2018-12-07] MEDS: ALBUTEROL NEB 2.5 MG/3 ML INH PRN ×2 (01:37→07:22)
[2018-12-07] MEDS: metroNIDAZOLE 500 MG/100 ML 500 MG/100 ML BAG IV SCH ×3 (01:52→17:32)
[2018-12-07 06:33] LABS: BASOPHILS % (AUTO) 0.2 %; EOSINOPHILS # (AUTO) 0.1 10^3/uL (0.0-0.7); EOSINOPHILS % (AUTO) 0.5 %; HGB - HEMOGLOBIN 10.5 g/dL (12.0-16.0); LYMPHOCYTES # (AUTO) 0.2 10^3/uL (1.5-3.5); LYMPHOCYTES % (AUTO) 1.3 %; MEAN CORPUSCULAR HEMOGLOBIN 36.3 pg (27.0-31.0); MEAN CORPUSCULAR HGB CONC 35.5 g/dL (32.0-36.0); MEAN CORPUSCULAR VOLUME 102.4 fL (81.0-99.0); MEAN PLATELET VOLUME 9.9 fL (7.9-10.8); MONOCYTES # (AUTO) 0.5 10^3/uL (0.0-1.0); MONOCYTES % (AUTO) 3.2 %; NEUTROPHILS # (AUTO) 14.3 10^3/uL (1.5-6.6); NEUTROPHILS % (AUTO) 94.3 %; PLT - PLATELET COUNT 240 10^3/uL (130-450); RED BLOOD COUNT 2.89 10^6/uL (4.20-5.40); RED CELL DISTRIBUTION WIDTH 12.5 % (12.0-15.0); WHITE BLOOD COUNT 15.2 x10^3/uL (4.8-10.8)
[2018-12-07] MEDS: IPRATROPIUM 0.2 MG/ML NEB INH SCH (07:22)
--- NOTE | 2018-12-07 07:29 | ADVANCE CARE PLANNING NOTE ---
Advance Care Planning - Date/Time Date: 12/06/18 Time: 17:00 - Purpose of encounter Text: Establish understanding of patient's baseline status, mental health in the face of alcoholic dementia - Parties in attendance Parties in attendance: , hospitalist - Decisional capacity Decisional capacity of: Patient is impaired. Has dementia, and currently with acute respiratory failure. Unable to participate in discussion - Subjective/Patient's story Subjective/Patient's story: She and her are from [facility]. But they moved here many many years ago. They were still very young, and came up here to visit her 's twin brother. He was on his way to [place] for a job. He got as far as [place] and he never left. So we asked the patient's to come visit, and that was the end of the story. They have lived here ever since. 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 Used to be a heavy smoker. But began drinking heavily at the age of 35 and just escalated from there once the kids left the house. Her mother, father, brother are alcoholics. The states that as far back as he can go in generations, all the family has alcoholism. Her dementia it leaves her unable to make prudent decisions at times. For instance she had melanotic stool for 2 weeks last summer. It is unclear if she has esophageal varices or not. Is not documented if she has alcoholic liver disease. But in working up the melanotic stool, the patient had as far as getting the prep but never followed through. She refuses to get an EGD or colonoscopy. She is completely dependent on her with regards to running the household. 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 He says that she spends most of her day just sitting in a chair watching TV. He does the cooking, cleaning. He pays the bills, she no longer drives. She is able to feed herself and dress herself. She is also becoming more more emotionally labile. She alters between being despondent and stating "just put me in a retirement and let me go" to lashing out and him with screaming, crying, and trying to hit them. She has had chronic shortness of breath for over 2 decades, and was diagnosed with mild COPD probably about 4 or 5 years ago. She is not on inhalers on a regular basis. And has not needed oxygen. Over the last 2 years she is just deteriorated with regards to memory. Over the last few months appetite is been very poor and needs mainly her caloric intake from alcohol that sustains her. For the emotional lability her doctors put her on Seroquel twice a day a month ago. But it is not touching her. He says it does not really seem to make a difference. He continues to buy her alcohol for her to take it every day. She is been having sinus problems for the last [address] of the sinuses was done April [address] of the chest done at the same time showed her to have some bronchiectasis. 2 days ago she started complaining of chest tightness and chest burning. That is progressed to rebecca cough, and statements that are repetitive "I just do not feel well". In spite of her emphysema she does not cough on a regular basis of this cough is quite new. She is not producing any phlegm. There is no hemoptysis. Her throat aches with this. I cannot tell if she is describing a sore throat or neck ache. She presented to the emergency room and has been admitted for sepsis, acute respiratory failure, and COPD exacerbation. She is agitated, keeps on taking the facemask off, and is demanding to go home. He states that she has been expressing a wish to just "let me go" for several months now. It is pretty consistent. She keeps refusing medical interventions or work ups and gets angry when he tries to force her. He recognizes that the quality of her life has diminished tremendously. She used to love to garden, travel, and see her grandchildren. But as her memory loss progressed, her alcohol abuse continued, she became more more prisoner of her house. She has no desire to leave it. And again, she spends most of her days just watching TV. He acknowledges that all the things that she used to do to make herself happy, are no longer being done. With that in mind, I asked him why he wants his to be a full code. He states that he is just not ready to let her go. That he is never thought about her life in terms of her happiness with regards to quality of life. He is never thought about the future. He takes it one day at a time. I asked him what would happen if she became so disabled she could no longer get out of bed and that he would have to take care of her as a bedbound patient. He says he has not thought about that, but he thinks that he would put her in a retirement. I asked him if that point in time would he consider end-of-life care with palliative measures. He states he is not sure. I asked him if he would want to be put in a retirement if he got to that point and he is adamant that he would never allow himself to do that, that he would make arrangements to at home. So I then ask him to ponder that and why he would do that for his but not to himself. - Objective/Medical story Objective/Medical Story: She is a 68-year-old white female who assist of alcohol abuse, dementia, bronchiectasis and chronic sinusitis who called her PCP office today with difficulty breathing, cough, feeling ill, sore throat today, with a headache yes terday. She was using her inhalers without relief. She was instructed to drive to the emergency room or consider 911. She was seen by Dr. Gregory Simms. Initial O2 sat was 70% on room air. Heart rate was 113, blood pressure was 119/105. Temperature 35.8. She is alert and oriented with gurgling breath sounds, mild respiratory distress, breath and rhonchi bilaterally. Her white cell count was 29,000. Her chest x-ray was read as negative by radiology but was interpreted as having bilateral lower lobe infiltrates with Dr. Brown. Urinalysis has not been done yet. Her lactic acid is 2.8. Troponin is less than 0.04. BNP is 83. Her states that she has been eating poorly for over 6 months. She is just lost her appetite. She does not actually cough on a regular basis but has dyspnea on exertion on a daily basis. She spends most of her time sitting in front of the TV. For the last 4 months she has been complaining of sinus pressure and drainage. It drips down the back of her throat and taste bad. In the last few days she has been complaining of not feeling well but was very nonspecific about her complaints. She just kept on telling her "I feel bad". Yesterday she had a severe cough, sore throat. Every time she coughs she felt like the top of her head was going of explode off the top of her head. She did not have a high fever. When he touched her she was not sweaty or hot. Her appetite really took an even worse turn. She has not wanted to eat anything. No change in bowel habits. I am admitting the patient to inpatient status as probable sepsis, and as of yet unknown pathogen, but most likely lungs. History - Past Medical History Cardiovascular: reports: Hypertension, Atrial fibrillation (Paroxysmal, with OBV stay [facility] 12/16/16 after being transferred there from here. Echo with LVEF 60 to 65%. Wall motion normal. Right ventricle normal. Borderline LAE. No sign ificant valvular heart disease. She was anticoagulated but Coumadin stopped when she had a GI bleed.) Respiratory: reports: COPD (FEV1 1.746, FVC 2.491, FEV/FVC 70% 05/07/11), Other (Bronchiectasis, Subtle, right middle lobe and lingular region on chest CT April 2018) Neuro: reports: Dementia (Has been getting slightly worse. She will scream and yell her . Get very agitated at times. Put on Seroquel October [address] Garcia) GI: reports: GI bleed (Black tarry stools while on Coumadin this started early September 2017 Coumadin stopped because of dementia, did not follow-up with EGD and colonoscopy. Initially was because she was not feeling well. Then she had a ground-level fall with minor injuries and she never rescheduled.), Other (Rectal bleeding September 2017) MOMD TEACHER: reports: Other (K2Z3-6-0, Postmenopausal bleeding December 2016. Ultrasound showed 3 mm fluid level in the endometrial cavity. Bleeding started 2 weeks after Pradaxa.) Psych: reports: Depression, Anxiety Musculoskeletal: reports: Other (Ground-level fall with displaced fracture of fourth metatarsal November 2017) Derm: reports: Other (Actinic keratoses of face. Hx of basal cell ca right NL fold, SK. Seen by [facility] in the past) MRSA Hx?: No - Past Surgical History Ortho: reports: Other (Left wrist percutaneous pinning 2013) /MOMD TEACHER: reports: Dilation and currettage - Goals of Care Goals of care determinations: At this time, as her and power of employment law attorney he would like her to have everything done with regards to resuscitation. He would also like to get any treatment that would require surgery, blood transfusions, tube feedings, etc.He has no plans of ever putting her in a longterm facility unless she is physically unable to get out of bed anymore. - Plan Plan: 1. Start to discuss what her end-of-life may look like if she steadily deteriorates from her alcoholic dementia. Discuss this with their 2 sons, and his when she has better memory than today. He is already describing an existence that is become very narrowed in comparison what she used to be. She is already expressing wishes about being left alone. She is already declining medical intervention. As her power of employment law attorney, is he truly following the wishes that she seems to be expressing? 2. Stop buying her alcohol and giving it to her 3. Consider getting information and advice from such places a senior services, or Alcoholics Anonymous. 4. Go visit [facility], [facility] local [facility], to get a better understanding of sarah cost structure, and what it would mean for her to be living at a longterm facility on a permanent basis. - Code Status Code Status: Attempt Resuscitation - Time Spent on Advance Care Planning Time spent on advance care plannin
[2018-12-07] MEDS: ENOXAPARIN 40 MG/0.4 ML SYRINGE SUBQ SCH (08:11)
[2018-12-07] MEDS: methylPREDNISolone SUCCINATE 40 MG/ML VIAL IVP SCH ×2 (08:12→21:29)
[2018-12-07] MEDS: POLYETHYLENE GLYCOL 3350 17 GM PACKET PO SCH (08:13)
[2018-12-07] MEDS: SODIUM CHLORIDE FLUSH 0.9% 10 ML SYRINGE IVP SCH ×3 (08:13→23:36)
[2018-12-07] MEDS: VANCOMYCIN INJ 1 GM in SODIUM CHLORIDE 0.9% 250 ML IV SCH ×2 (09:17→21:31)
[2018-12-07] MEDS: IPRATROPIUM/ALBUTEROL 3 ML NEB INH SCH ×3 (11:13→17:56)
[2018-12-07] MEDS: MULTIVITAMIN 10 ML, THIAMINE INJ 100 MG, FOLIC ACID INJ 1 MG in SODIUM CHLORIDE 0.9% 1,... IV SCH (11:16)
--- NOTE | 2018-12-07 13:25 | PROVIDER PROGRESS NOTE ---
Subjective - Prog Note Date Prog Note Date: 12/07/18 Prog Note Time: 13:45 - Subjective Pt reports feeling: Improved Subjective: Last night she was combative, confused, not really able to be spoken to or to be able to respond. Overnight she is calm down, and this morning she is sitting upright in her chair. Eating breakfast. Still tripoding, still with some respiratory issues of shortness of breath. But she is speaking to me, cooperative. She told the nurse that she wanted to see her baby. She believes that she is here to deliver her child and that is why she is in the hospital. Current Medications - Current Medications Current Medications: Active Medications Acetaminophen (Tylenol) 650 mg PO Q4HR PRN PRN Reason: Pain 1 to 4 Albuterol () 2.5 mg INH Q2HR PRN PRN Reason: Wheezing Last Admin: 12/07/18 07:22 Dose: 2.5 mg Albuterol/Ipratropium (Duoneb) 3 ml INH RTQID [facility] Last Admin: 12/07/18 11:13 Dose: 3 ml Enoxaparin Sodium (Lovenox) 40 mg SUBQ DAILY [facility] Last Admin: 12/07/18 08:11 Dose: 40 mg Haloperidol (Haldol Inj) 1 mg IVP Q6H PRN PRN Reason: Agitation Last Admin: 12/06/18 17:16 Dose: 1 mg Cefepime HCl 2 gm/ Sodium (Chloride) 100 mls @ 200 mls/hr IV Q8H [facility] Last Infusion: 12/07/18 08:40 Dose: Infused Metronidazole (Flagyl 500 Mg/100 Ml) 500 mg in 100 mls @ 100 mls/hr IV Q8H [facility] Last Infusion: 12/07/18 11:27 Dose: Infused Multivitamins 10 ml/ Thiamine HCl 100 mg/ Folic Acid 1 mg/Sodium Chloride 1,011.2 mls @ 100 mls/hr IV DAILY [facility] Last Admin: 12/07/18 11:16 Dose: 100 mls/hr Vancomycin HCl 1 gm/ Sodium (Chloride) 250 mls @ 166.667 mls/hr IV Q12H [facility] Last Infusion: 12/07/18 10:50 Dose: Infused Lorazepam (Ativan Inj (Vial)) 1 mg IVP Q30M PRN; Protocol PRN Reason: CIWA >8 Methylprednisolone (Solu-Medrol (40mg Vial)) 60 mg IVP BID [facility] Last Admin: 12/07/18 08:12 Dose: 60 mg Metoprolol Tartrate (Lopressor) 50 mg PO BID [facility] Morphine Sulfate (Morphine (Carpuject)) 1 mg IVP Q3HR PRN PRN Reason: Dyspnea Last Admin: 12/06/18 20:51 Dose: 1 mg Non-Formulary Medication (Levothyroxine Sodium [Synthroid]) 50 mcg PO QDAC [facility] Polyethylene Glycol (Miralax) 17 gm PO DAILY [facility] Last Admin: 12/07/18 08:13 Dose: 17 gm Quetiapine Fumarate (Seroquel) 50 mg PO QPM [facility] Last Admin: 12/06/18 21:38 Dose: 50 mg Sodium Chloride (Normal Saline Flush 0.9%) 10 ml IVP PRN PRN PRN Reason: NEEDED PER PROVIDER ORDERS Sodium Chloride (Normal Saline Flush 0.9%) 10 ml IVP 0100,0900,1700 [facility] Last Admin: 12/07/18 08:13 Dose: 10 ml Losartan Potassium 50 mg PO DAILY 12/15/16 dilTIAZem HCl [Diltiazem ER] 240 mg PO DAILY 12/15/[address] [Voltaren] 75 mg PO BIDWM 12/06/18 Levothyroxine Sodium [Synthroid] 50 mcg PO QDAC 12/06/18 Metoprolol Tartrate [Lopressor] 50 mg PO BID 12/06/18 QUEtiapine [SEROquel] 25 mg PO BID 12/06/18 Objective - Vital Signs/Intake & Output Reviewed Vital Signs: Yes Vital Signs: Vital Signs x48h Temp Pulse Pulse Resp BP Pulse Ox 12/07/18 11:25 37.1 C 103 H 22 136/95 H 93 12/07/18 11:17 100 22 12/07/18 09:48 36.9 C 100 22 93 12/07/18 07:48 36.9 C 120 H 24 151/76 H 92 12/07/18 07:24 80 16 12/07/18 07:15 93 Intake & Output: Intake & Output 12/04/18 12/05/18 12/06/18 12/07/18 23:59 23:59 23:59 23:59 Intake Total 2355 4035.977 Output Total 400 900 Balance 1954 4565.977 - Objective General Appearance: positive: Alert, Mild distress (Respiratory) Eyes Bilateral: positive: PERRL ENT: positive: Pharynx nml, No signs of dehydration Neck: positive: No JVD. negative: Stiff neck, Carotid bruit Respiratory: positive: Chest non-tender, Wheezes, Other (Yesterday her lungs are very quiet and the most heard was upper airway tubular breath sounds. Today I can hear wheezing, loosening of her lung stiffness). negative: Rales, Rhonchi Cardiovascular: positive: Regular rate & rhythm, Tachycardia, Systolic murmur. negative: Gallop/S4, Friction rub Abdomen: positive: Non-tender, No organomegaly, Nml bowel sounds, No distention Skin: positive: Warm, Dry Extremities: positive: Non-tender, Full ROM, No pedal edema Neurologic/Psychiatric: positive: CN's nml (2-12), Motor nml, Disoriented to place (She knows she is in the hospital, but again, she thinks she is here to deliver her baby), Disoriented to time, Weakness - Lab Results Fish Bones: 12/07/18 06:27 12/06/18 12:21 Other Labs: Lab Results x24hrs 12/07/18 12/07/18 12/06/18 Range/Units 06:27 06:27 23:15 WBC 15.2 H (4.8-10.8) x10^3/uL RBC 2.89 L (4.20-5.40) 10^6/uL Hgb 10.5 L (12.0-16.0) g/dL Hct 29.6 L (37.0-47.0) % MCV 102.4 H (81.0-99.0) fL MCH 36.3 H (27.0-31.0) pg MCHC 35.5 (32.0-36.0) g/dL RDW 12.5 (12.0-15.0) % Plt Count 240 (130-450) 10^3/uL MPV 9.9 (7.9-10.8) fL Neut # (Auto) 14.3 H Lymph # (Auto) 0.2 L [place] # (Auto) 0.5 Eos # (Auto) 0.1 Baso # (Auto) 0.0 Absolute Nucleated RBC 0.00 Total Counted Band Neuts % (Manual) (0 - 10) % Abnorm Lymph % (Manual) % Nucleated RBC % 0.0 Neutrophils # (Manual) (1.5-6.6) 10^3/uL Lymphocytes # (Manual) (1.5-3.5) 10^3/uL Monocytes # (Manual) (0.0-1.0) 10^3/uL Eosinophils # (Manual) (0-0.7) 10^3/uL Basophils # (Manual) (0-0.1) 10^3/uL Differential Comment WBC Morphology (NORMAL) Platelet Estimate (NORMAL) Platelet Morphology (NORMAL) RBC Morph Micro Appear (NORMAL) Lactic Acid 0.9 2.4 H (0.5-2.2) mmol/L Urine Color Urine Clarity (CLEAR) Urine pH (5.0-7.5) PH Ur Specific [place] (1.002-1.030) Urine Protein (NEGATIVE) mg/dL Urine Glucose (UA) (NEGATIVE) mg/dL Urine Ketones (NEGATIVE) mg/dL Urine Occult Blood (NEGATIVE) Urine Nitrite (NEGATIVE) Urine Bilirubin (NEGATIVE) Urine Urobilinogen (NORMAL) E.U./dL Ur Leukocyte Esterase (NEGATIVE) Urine RBC (0-5) /HPF Urine WBC (0-5) /HPF Ur Squamous Epith Cells (<= Few) Urine Bacteria (None Seen) /HPF Ur Microscopic Review Urine Culture Comments Urine Opiates Screen (NEGATIVE) Ur Oxycodone Screen (NEGATIVE) Urine Methadone Screen (NEGATIVE) Ur Propoxyphene Screen (NEGATIVE) Ur Barbiturates Screen (NEGATIVE) Ur Tricyclics Screen (NEGATIVE) Ur Phencyclidine Scrn (NEGATIVE) Ur Amphetamine Screen (NEGATIVE) U Methamphetamines Scrn (NEGATIVE) U Benzodiazepines Scrn (NEGATIVE) Urine Cocaine Screen (NEGATIVE) U Cannabinoids Screen (NEGATIVE) Ethyl Alcohol mg/dL Group A Strep Rapid (Negative) 12/06/18 12/06/18 12/06/18 Range/Units 19:11 19:11 17:27 WBC (4.8-10.8) x10^3/uL RBC (4.20-5.40) 10^6/uL Hgb (12.0-16.0) g/dL Hct (37.0-47.0) % MCV (81.0-99.0) fL MCH (27.0-31.0) pg MCHC (32.0-36.0) g/dL RDW (12.0-15.0) % Plt Count (130-450) 10^3/uL MPV (7.9-10.8) fL Neut # (Auto) Lymph # (Auto) [place] # (Auto) Eos # (Auto) Baso # (Auto) Absolute Nucleated RBC Total Counted Band Neuts % (Manual) (0 - 10) % Abnorm Lymph % (Manual) % Nucleated RBC % Neutrophils # (Manual) (1.5-6.6) 10^3/uL Lymphocytes # (Manual) (1.5-3.5) 10^3/uL Monocytes # (Manual) (0.0-1.0) 10^3/uL Eosinophils # (Manual) (0-0.7) 10^3/uL Basophils # (Manual) (0-0.1) 10^3/uL Differential Comment WBC Morphology (NORMAL) Platelet Estimate (NORMAL) Platelet Morphology (NORMAL) RBC Morph Micro Appear (NORMAL) Lactic Acid 2.8 H (0.5-2.2) mmol/L Urine Color YELLOW Urine Clarity CLEAR (CLEAR) Urine pH 5.0 (5.0-7.5) PH Ur Specific [place] 1.020 (1.002-1.030) Urine Protein NEGATIVE (NEGATIVE) mg/dL Urine Glucose (UA) 500 H (NEGATIVE) mg/dL Urine Ketones 15 H (NEGATIVE) mg/dL Urine Occult Blood SMALL H (NEGATIVE) Urine Nitrite NEGATIVE (NEGATIVE) Urine Bilirubin NEGATIVE (NEGATIVE) Urine Urobilinogen 0.2 (NORMAL) (NORMAL) E.U./dL Ur Leukocyte Esterase NEGATIVE (NEGATIVE) Urine RBC 0-5 (0-5) /HPF Urine WBC 0-3 (0-5) /HPF Ur Squamous Epith Cells FEW Squamous (<= Few) Urine Bacteria None Seen (None Seen) /HPF Ur Microscopic Review INDICATED Urine Culture Comments NOT INDICATED Urine Opiates Screen POSITIVE H (NEGATIVE) Ur Oxycodone Screen NEGATIVE (NEGATIVE) Urine Methadone Screen NEGATIVE (NEGATIVE) Ur Propoxyphene Screen NEGATIVE (NEGATIVE) Ur Barbiturates Screen NEGATIVE (NEGATIVE) Ur Tricyclics Screen POSITIVE H (NEGATIVE) Ur Phencyclidine Scrn NEGATIVE (NEGATIVE) Ur Amphetamine Screen NEGATIVE (NEGATIVE) U Methamphetamines Scrn NEGATIVE (NEGATIVE) U Benzodiazepines Scrn NEGATIVE (NEGATIVE) Urine Cocaine Screen NEGATIVE (NEGATIVE) U Cannabinoids Screen NEGATIVE (NEGATIVE) Ethyl Alcohol mg/dL Group A Strep Rapid (Negative) 12/06/18 12/06/18 12/06/18 Range/Units 13:45 13:12 12:21 WBC (4.8-10.8) x10^3/uL RBC (4.20-5.40) 10^6/uL Hgb (12.0-16.0) g/dL Hct (37.0-47.0) % MCV (81.0-99.0) fL MCH (27.0-31.0) pg MCHC (32.0-36.0) g/dL RDW (12.0-15.0) % Plt Count (130-450) 10^3/uL MPV (7.9-10.8) fL Neut # (Auto) Lymph # (Auto) [place] # (Auto) Eos # (Auto) Baso # (Auto) Absolute Nucleated RBC Total Counted Band Neuts % (Manual) (0 - 10) % Abnorm Lymph % (Manual) % Nucleated RBC % Neutrophils # (Manual) (1.5-6.6) 10^3/uL Lymphocytes # (Manual) (1.5-3.5) 10^3/uL Monocytes # (Manual) (0.0-1.0) 10^3/uL Eosinophils # (Manual) (0-0.7) 10^3/uL Basophils # (Manual) (0-0.1) 10^3/uL Differential Comment WBC Morphology (NORMAL) Platelet Estimate (NORMAL) Platelet Morphology (NORMAL) RBC Morph Micro Appear (NORMAL) Lactic Acid 2.8 H (0.5-2.2) mmol/L Urine Color Urine Clarity (CLEAR) Urine pH (5.0-7.5) PH Ur Specific [place] (1.002-1.030) Urine Protein (NEGATIVE) mg/dL Urine Glucose (UA) (NEGATIVE) mg/dL Urine Ketones (NEGATIVE) mg/dL Urine Occult Blood (NEGATIVE) Urine Nitrite (NEGATIVE) Urine Bilirubin (NEGATIVE) Urine Urobilinogen (NORMAL) E.U./dL Ur Leukocyte Esterase (NEGATIVE) Urine RBC (0-5) /HPF Urine WBC (0-5) /HPF Ur Squamous Epith Cells (<= Few) Urine Bacteria (None Seen) /HPF Ur Microscopic Review Urine Culture Comments Urine Opiates Screen (NEGATIVE) Ur Oxycodone Screen (NEGATIVE) Urine Methadone Screen (NEGATIVE) Ur Propoxyphene Screen (NEGATIVE) Ur Barbiturates Screen (NEGATIVE) Ur Tricyclics Screen (NEGATIVE) Ur Phencyclidine Scrn (NEGATIVE) Ur Amphetamine Screen (NEGATIVE) U Methamphetamines Scrn (NEGATIVE) U Benzodiazepines Scrn (NEGATIVE) Urine Cocaine Screen (NEGATIVE) U Cannabinoids Screen (NEGATIVE) Ethyl Alcohol < 5.0 mg/dL Group A Strep Rapid Negative (Negative) 12/06/18 Range/Units 12:21 WBC (4.8-10.8) x10^3/uL RBC (4.20-5.40) 10^6/uL Hgb (12.0-16.0) g/dL Hct (37.0-47.0) % MCV (81.0-99.0) fL MCH (27.0-31.0) pg MCHC (32.0-36.0) g/dL RDW (12.0-15.0) % Plt Count (130-450) 10^3/uL MPV (7.9-10.8) fL Neut # (Auto) Not Reportable Lymph # (Auto) Not Reportable [place] # (Auto) Not Reportable Eos # (Auto) Not Reportable Baso # (Auto) Not Reportable Absolute Nucleated RBC Not Reportable Total Counted 100 Band Neuts % (Manual) 3 (0 - 10) % Abnorm Lymph % (Manual) 0 % Nucleated RBC % Not Reportable Neutrophils # (Manual) 26.6 H (1.5-6.6) 10^3/uL Lymphocytes # (Manual) 0.9 L (1.5-3.5) 10^3/uL Monocytes # (Manual) 1.8 H (0.0-1.0) 10^3/uL Eosinophils # (Manual) 0.0 (0-0.7) 10^3/uL Basophils # (Manual) 0.0 (0-0.1) 10^3/uL Differential Comment MANUAL DIFFERENTIAL WBC Morphology NORMAL APPEARANCE (NORMAL) Platelet Estimate NORMAL (130-450,000) (NORMAL) Platelet Morphology NORMAL APPEARANCE (NORMAL) RBC Morph Micro Appear 1+ MACROCYTOSIS (NORMAL) Lactic Acid (0.5-2.2) mmol/L Urine Color Urine Clarity (CLEAR) Urine pH (5.0-7.5) PH Ur Specific [place] (1.002-1.030) Urine Protein (NEGATIVE) mg/dL Urine Glucose (UA) (NEGATIVE) mg/dL Urine Ketones (NEGATIVE) mg/dL Urine Occult Blood (NEGATIVE) Urine Nitrite (NEGATIVE) Urine Bilirubin (NEGATIVE) Urine Urobilinogen (NORMAL) E.U./dL Ur Leukocyte Esterase (NEGATIVE) Urine RBC (0-5) /HPF Urine WBC (0-5) /HPF Ur Squamous Epith Cells (<= Few) Urine Bacteria (None Seen) /HPF Ur Microscopic Review Urine Culture Comments Urine Opiates Screen (NEGATIVE) Ur Oxycodone Screen (NEGATIVE) Urine Methadone Screen (NEGATIVE) Ur Propoxyphene Screen (NEGATIVE) Ur Barbiturates Screen (NEGATIVE) Ur Tricyclics Screen (NEGATIVE) Ur Phencyclidine Scrn (NEGATIVE) Ur Amphetamine Screen (NEGATIVE) U Methamphetamines Scrn (NEGATIVE) U Benzodiazepines Scrn (NEGATIVE) Urine Cocaine Screen (NEGATIVE) U Cannabinoids Screen (NEGATIVE) Ethyl Alcohol mg/dL Group A Strep Rapid (Negative) ABX Reporting Has patient been on IV antibiotics over the past 48 hours?: Yes Sepsis Event Note (H) - Evaluation Current Stage of Sepsis: Resolved Possible source of Sepsis: positive: Pulmonary - Sepsis Criteria Sepsis Criteria: Recorded Temperature greater than 38.3C or Less than 36C, Recorded Heart Rate greater than 90 bpm, Recorded Respiratory Rate greater than 20, Respiratory: Increasing oxygen requirements, WBC count greater than 10% bands Assessment/Plan - Problem List (1) Sepsis Impression: Resolved. This lady presents is a 68-year-old former smoker who is a current alcohol abuser that leaves her immunocompromised, with a sudden complaints of frontal sinus headache, chest tightness and burning, new cough for 24 to 48 hours, sore throat, superimposed on sinus infection for the last 4 months. She meets sepsis criteria with a relatively normal chest x-ray, and negative belly exam. Lactic acid was 2.8. CT of sinus April 2018 no had mild mucosal thickening in the bilateral maxillary and left ethmoid sinus. But nothing that was severe. CT of chest done the same day as her sinuses show subtle bronchiectasis of the right middle lobe and lingular region. Pulmonary background demonstrated a mild amount of upper lobe predominant emphysema. Urinalysis had glucosuria, ketones, small amount of blood but no infection Lactic acid 2.8>2.8>2.4>0.9 WBC 29K>15K hypothermia resolved. Plan: -Sepsis protocol intiated and completed. -Broad-spectrum empiric antibiotic for an unknown pathogen although I suspect this to be pulmonary or ENT by ROS. Day #2 of cefepime, metronidazole, vancomycin -Throat culture in progress, blood cultures received and not processed, respiratory culture ordered, and sputum just submitted right now.Will review those cultures when resulted. -Advance care planning discussion documented in separate note with Qualifiers: Sepsis type: sepsis due to unspecified organism Qualified Code(s): A41.9 - Sepsis, unspecified organism (2) Acute respiratory failure with hypoxemia Conclusion/Plan: Due to a combination of her COPD and most likely lung source pathogen for sepsis. Although was not visible on chest x-ray and BNP indicates no congestive heart failure. She is a full code. Her does want her intubated if she needs to be. We will monitor closely over the next few hours. So far she is improving and cooperates enough to maintain 02 sats. No need for her to be transferred to ICU for BiPAP and then intubation if necessary. (3) COPD with exacerbation Conclusion/Plan: Still sitting up in tripod position. -Broad-spectrum antibiotic coverage per sepsis protocol. Not necessarily pulmonary pathogen. Adjust antibiotics on the basis of cultures when they arrive. She has improved but will probably still need a few more days to stabilize her. -Fixed scheduled dose DuoNeb. -IV steroids to be continued -Sputum able to be induced right now, to go to lab -Oxygen by nasal cannula or facemask. -Patient is a full code, she will need to be intubated if required (4) Alcoholic dementia Conclusion/Plan: She has never gone through withdrawal according to her . But her drinking has been steady since the age of 35. She has been recently placed on Seroquel without success. Behavior was escalating in the emergency room and on MedSurg because she refused to do treatment. She was ripping off the mask and demanding to go home. By late evening, she was calm and has remained cooperative thru the night and today. Plan: -Thiamine, folate, B12, magnesium via CIWA protocol, Day #2 zia [place] -Haldol 1 mg IV push every 8 hours prn and has received only one dose ~1700 on 12/06 -Resumed her usual Seroquel -Monitor vitals and agitation to make sure she is not going through withdrawal -I have strongly recommended that her stop buying her alcohol. If she is going to go through withdrawal during this hospitalization, do not prolong the state if he buys or more alcohol again. Qualifiers: Dementia behavioral disturbance: with behavioral disturbance Qualified Code(s): F10.27 - Alcohol dependence with alcohol-induced persisting dementia (5) Hyponatremia Conclusion/Plan: This is in a patient who has history of alcohol abuse. She is never been documented as having cirrhosis, ascites. However, she had black tarry stools a year ago and she may have undiagnosed esophageal varices. Sodium could be related to cirrhosis or could be related to dehydration and patient has poor p.o. intake. Plan: Hydrate with IVP and repeat BMP in the morning. This morning lab pendind and I will review. If hyponatremia worsens, do further work-up. Check US for status of liver. (6) History of atrial fibrillation Conclusion/Plan: She has had intermittent, paroxysmal atrial fibrillation. Dates back to a decade of palpitations but not formally seen until an ER visit in 2017. Transferred from here to [facility] since we had no ICU beds. SC ruled out. Today troponins are negative. She is in sinus tachycardia on her EKG. She does have a chads Vascor of 3 but she refuses anticoagulation. In view the fact that she may have an unknown GI pathology with bleeding, it is probably prudent decision. I will resume her usual Cardizem but avoid beta-fer since I am going to be giving her beta agonist. Heart rate is 103 and up to 120. Blood pressure is 151/76, 136/95. Resume betablocker as well as her cardizem. Hold of on losartan. (7) HTN (hypertension) Conclusion/Plan: She became hypotensive in the emergency room with her sepsis. I will wait till later in the evening once her blood pressure stabilized to give her her Cardizem for her heart rate. We will hold off on losartan and metoprolol. Qualifiers: Hypertension type: essential hypertension Qualified Code(s): I10 - Essential (primary) hypertension (8) Alcohol abuse Conclusion/Plan: As per treatment in alcoholic dementia. Qualifiers: Qualified Code(s): A41.9 - Sepsis, unspecified organism
[2018-12-07 14:02] LABS: CALCIUM 9.2 mg/dL (8.5-10.3); CREATININE 0.6 mg/dL (0.4-1.0)
[2018-12-07] MEDS: METOPROLOL TARTRATE 50 MG TABLET PO SCH ×2 (14:09→21:29)
[2018-12-07] MEDS: LEVOTHYROXINE 25 MCG TABLET PO SCH (14:09)
[2018-12-07] MEDS ORDERED: SODIUM CHLORIDE FLUSH 0.9% 10 ML SYRINGE ONE (21:09)
[2018-12-07] MEDS: QUEtiapine 25 MG TABLET PO SCH (21:31)
[2018-12-08] MEDS: LORazepam 2 MG/ML VIAL IVP PRN ×6 (00:30→22:35)
[2018-12-08] MEDS: metroNIDAZOLE 500 MG/100 ML 500 MG/100 ML BAG IV SCH ×2 (02:01→09:52)
[2018-12-08 06:45] LABS: BASOPHILS % (AUTO) 0.2 %; EOSINOPHILS # (AUTO) 0.2 10^3/uL (0.0-0.7); HGB - HEMOGLOBIN 10.1 g/dL (12.0-16.0); LYMPHOCYTES # (AUTO) 0.3 10^3/uL (1.5-3.5); LYMPHOCYTES % (AUTO) 1.5 %; MEAN CORPUSCULAR HEMOGLOBIN 35.8 pg (27.0-31.0); MEAN CORPUSCULAR HGB CONC 34.2 g/dL (32.0-36.0); MEAN CORPUSCULAR VOLUME 104.6 fL (81.0-99.0); MEAN PLATELET VOLUME 10.4 fL (7.9-10.8); MONOCYTES # (AUTO) 0.7 10^3/uL (0.0-1.0); MONOCYTES % (AUTO) 3.9 %; NEUTROPHILS # (AUTO) 17.5 10^3/uL (1.5-6.6); NEUTROPHILS % (AUTO) 91.6 %; PLT - PLATELET COUNT 235 10^3/uL (130-450); RED BLOOD COUNT 2.82 10^6/uL (4.20-5.40); WHITE BLOOD COUNT 19.1 x10^3/uL (4.8-10.8)
[2018-12-08 06:53] LABS: CALCIUM 9.4 mg/dL (8.5-10.3); CREATININE 0.6 mg/dL (0.4-1.0)
[2018-12-08] MEDS: IPRATROPIUM/ALBUTEROL 3 ML NEB INH SCH ×4 (07:17→19:56)
[2018-12-08 07:29] LABS: DIFFERENTIAL COMMENT MANUAL=AUTO DIFF; PLATELET ESTIMATE, MANUAL NORMAL (130-450,000) (NORMAL); PLATELET MORPHOLOGY NORMAL APPEARANCE (NORMAL)
[2018-12-08] MEDS ORDERED: SODIUM CHLORIDE 0.9% 500 ML IV PRN (08:01)
[2018-12-08] MEDS: LEVOTHYROXINE 25 MCG TABLET PO SCH (08:04)
[2018-12-08] MEDS ORDERED: SODIUM CHLORIDE 0.9% 500 ML IV ONE (08:08)
[2018-12-08] MEDS: CEFEPIME 2 GM in SODIUM CHLORIDE 0.9% MINIBAG 100 ML IV SCH (08:10)
[2018-12-08 08:58] LABS: VANCOMYCIN,TROUGH 21.4 ug/mL (10.0-20.0)
[2018-12-08] MEDS: SENNA 8.6 MG TABLET PO SCH (09:44)
[2018-12-08] MEDS: methylPREDNISolone SUCCINATE 40 MG/ML VIAL IVP SCH (09:44)
[2018-12-08] MEDS: ENOXAPARIN 40 MG/0.4 ML SYRINGE SUBQ SCH (09:44)
[2018-12-08] MEDS: DOCUSATE SODIUM 250 MG CAPSULE PO SCH (09:44)
[2018-12-08] MEDS: POLYETHYLENE GLYCOL 3350 17 GM PACKET PO SCH (09:44)
[2018-12-08] MEDS: METOPROLOL TARTRATE 50 MG TABLET PO SCH ×2 (09:45→20:42)
[2018-12-08] MEDS: SODIUM CHLORIDE FLUSH 0.9% 10 ML SYRINGE IVP SCH ×3 (09:47→15:48)
[2018-12-08] MEDS ORDERED: HALOPERIDOL 5 MG/ML VIAL IM PRN (10:42)
[2018-12-08] MEDS ORDERED: SODIUM CHLORIDE 0.9% IV SCH (11:00)
[2018-12-08] MEDS ORDERED: PENICILLIN POTASSIUM IV SCH (11:00)
--- NOTE | 2018-12-08 11:04 | PROVIDER PROGRESS NOTE ---
Subjective - Prog Note Date Prog Note Date: 12/08/18 Prog Note Time: 11:04 - Subjective Subjective: She waxes and wanes with her alertness, orientation. Yesterday she thought she was here in the hospital after she delivered a baby and was very pleasant and happy and asking after her baby and when she could see it. Overnight, not so much. Angry, belligerent. Using curse words to yell at the nurses. This morning she is cooperative, but requires a lot of hands-on gentle prompting. Throat culture grew out beta hemolytic group strep A. Blood cultures continue to be negative. Her white cell count continues to be elevated at 19.1. She has started a 29.2, went down to 15.2 and is now 19.1. From a respiratory perspective she is now 93 to 94% on room air. Current Medications - Current Medications Current Medications: Active Medications Acetaminophen (Tylenol) 650 mg PO Q4HR PRN PRN Reason: Pain 1 to 4 Albuterol () 2.5 mg INH Q2HR PRN PRN Reason: Wheezing Last Admin: 12/07/18 07:22 Dose: 2.5 mg Albuterol/Ipratropium (Duoneb) 3 ml INH RTQID [facility] Last Admin: 12/08/18 07:17 Dose: 3 ml Docusate Sodium (Colace 250mg Capsule) 250 - 500 mg PO DAILY [facility] Last Admin: 12/08/18 09:44 Dose: 500 mg Enoxaparin Sodium (Lovenox) 40 mg SUBQ DAILY [facility] Last Admin: 12/08/18 09:44 Dose: 40 mg Haloperidol (Haldol Inj) 1 mg IM Q6H PRN PRN Reason: Agitation Multivitamins 10 ml/ Thiamine HCl 100 mg/ Folic Acid 1 mg/Sodium Chloride 1,011.2 mls @ 100 mls/hr IV DAILY [facility] Last Infusion: 12/08/18 00:55 Dose: Infused Cefazolin Sodium 1 gm/ Sodium (Chloride) 100 mls @ 200 mls/hr IV Q8H [facility] Levothyroxine Sodium (Synthroid) 50 mcg PO QDAC [facility] Last Admin: 12/08/18 08:04 Dose: 50 mcg Lorazepam (Ativan Inj (Vial)) 1 mg IVP Q30M PRN; Protocol PRN Reason: CIWA >8 Last Admin: 12/08/18 10:22 Dose: 1 mg Methylprednisolone (Solu-Medrol (40mg Vial)) 60 mg IVP BID [facility] Last Admin: 12/08/18 09:44 Dose: 60 mg Metoprolol Tartrate (Lopressor) 50 mg PO BID [facility] Last Admin: 12/08/18 09:45 Dose: 50 mg Morphine Sulfate (Morphine (Carpuject)) 1 mg IVP Q3HR PRN PRN Reason: Dyspnea Last Admin: 12/06/18 20:51 Dose: 1 mg Polyethylene Glycol (Miralax) 17 gm PO DAILY [facility] Last Admin: 12/08/18 09:44 Dose: 17 gm Quetiapine Fumarate (Seroquel) 50 mg PO BID [facility] Senna (Senokot) 8.6 - 17.2 mg PO DAILY [facility] Last Admin: 12/08/18 09:44 Dose: 8.6 mg Sodium Chloride (Normal Saline Flush 0.9%) 10 ml IVP PRN PRN PRN Reason: NEEDED PER PROVIDER ORDERS Sodium Chloride (Normal Saline Flush 0.9%) 10 ml IVP 0100,0900,1700 [facility] Last Admin: 12/08/18 09:47 Dose: 10 ml Losartan Potassium 50 mg PO DAILY 12/15/16 dilTIAZem HCl [Diltiazem ER] 240 mg PO DAILY 12/15/[address] [Voltaren] 75 mg PO BIDWM 12/06/18 Levothyroxine Sodium [Synthroid] 50 mcg PO QDAC 12/06/18 Metoprolol Tartrate [Lopressor] 50 mg PO BID 12/06/18 QUEtiapine [SEROquel] 25 mg PO BID 12/06/18 Objective - Vital Signs/Intake & Output Reviewed Vital Signs: Yes Vital Signs: Vital Signs x48h Temp Pulse Pulse Resp BP BP Pulse Ox 12/08/18 09:45 149/78 H 12/08/18 08:10 36.4 C L 87 18 149/78 H 93 12/08/18 07: 88 18 12/08/18 05:39 36.8 C 99 16 156/95 H 94 Intake & Output: Intake & Output 12/05/18 12/06/18 12/07/18 12/08/18 23:59 23:59 23:59 23:59 Intake Total 8665 4645.977 1631.2 Output Total 400 900 Balance 1954 3745.977 1631.2 - Objective General Appearance: positive: No acute distress, Alert, Other (Sitting up in bed, talking to me but, no labored respiration. She is now much more relaxed sitting back in chair, not tripoding.) Eyes Bilateral: positive: PERRL ENT: positive: Pharynx nml Neck: positive: No JVD. negative: Stiff neck, Carotid bruit Respiratory: positive: Chest non-tender, Wheezes, Rhonchi, Other (Overall her wheezes are much looser, better air movement. No use of accessory muscles. When she coughs, she is able to bring up phlegm.). negative: Rales Cardiovascular: positive: Regular rate & rhythm, Systolic murmur. negative: Gallop/S4, Friction rub Abdomen: positive: Non-tender, No organomegaly, Nml bowel sounds, No distention Skin: positive: Warm, Dry Extremities: positive: Non-tender, No pedal edema Neurologic/Psychiatric: positive: CN's nml (2-12), Motor nml, Weakness, Other (She is oriented to person and place. She still really does not know why she is here. Can follow 1-2 step commands depending on her mood. Her confusion, belligerence, continue to be a problem because it impedes the nursing ability and respiratory ability to deliver their care) - Lab Results Fish Bones: 12/08/18 06:36 12/08/18 06:36 Other Labs: Lab Results x24hrs 12/08/18 12/08/18 12/08/18 Range/Units 08:28 06:36 06:36 WBC 19.1 H (4.8-10.8) x10^3/uL RBC 2.82 L (4.20-5.40) 10^6/uL Hgb 10.1 L (12.0-16.0) g/dL Hct 29.5 L (37.0-47.0) % MCV 104.6 H (81.0-99.0) fL MCH 35.8 H (27.0-31.0) pg MCHC 34.2 (32.0-36.0) g/dL RDW 13.0 (12.0-15.0) % Plt Count 235 (130-450) 10^3/uL MPV 10.4 (7.9-10.8) fL Neut # (Auto) 17.5 H (1.5-6.6) 10^3/uL Lymph # (Auto) 0.3 L (1.5-3.5) 10^3/uL Haines # (Auto) 0.7 (0.0-1.0) 10^3/uL Eos # (Auto) 0.2 (0.0-0.7) 10^3/uL Baso # (Auto) 0.0 (0.0-0.1) 10^3/uL Absolute Nucleated RBC 0.00 x10^3/uL Band Neuts % (Manual) Not Reportable Abnorm Lymph % (Manual) Not Reportable Nucleated RBC % 0.0 /100WBC Neutrophils # (Manual) Not Reportable Lymphocytes # (Manual) Not Reportable Monocytes # (Manual) Not Reportable Eosinophils # (Manual) Not Reportable Basophils # (Manual) Not Reportable Differential Comment MANUAL=AUTO DIFF WBC Morphology TOXIC GRANULATION (NORMAL) Platelet Estimate NORMAL (130-450,000) (NORMAL) Platelet Morphology NORMAL APPEARANCE (NORMAL) RBC Morph Micro Appear 1+ POLYCHROMASIA (NORMAL) Sodium 137 (135-145) mmol/L Potassium 3.8 (3.5-5.0) mmol/L Chloride 103 (101-111) mmol/L Carbon Dioxide 23 (21-32) mmol/L Anion Gap 11.0 (6-13) BUN 16 (6-20) mg/dL Creatinine 0.6 (0.4-1.0) mg/dL Estimated GFR (MDRD) 99 (>89) Glucose 138 H (70-100) mg/dL Calcium 9.4 (8.5-10.3) mg/dL Last Dose Date 12/08/18 Last Dose Time 00:56 Vancomycin Trough 21.4 H (10.0-20.0) ug/mL 12/07/18 Range/Units 06:27 WBC (4.8-10.8) x10^3/uL RBC (4.20-5.40) 10^6/uL Hgb (12.0-16.0) g/dL Hct (37.0-47.0) % MCV (81.0-99.0) fL MCH (27.0-31.0) pg MCHC (32.0-36.0) g/dL RDW (12.0-15.0) % Plt Count (130-450) 10^3/uL MPV (7.9-10.8) fL Neut # (Auto) (1.5-6.6) 10^3/uL Lymph # (Auto) (1.5-3.5) 10^3/uL Haines # (Auto) (0.0-1.0) 10^3/uL Eos # (Auto) (0.0-0.7) 10^3/uL Baso # (Auto) (0.0-0.1) 10^3/uL Absolute Nucleated RBC x10^3/uL Band Neuts % (Manual) Abnorm Lymph % (Manual) Nucleated RBC % /100WBC Neutrophils # (Manual) Lymphocytes # (Manual) Monocytes # (Manual) Eosinophils # (Manual) Basophils # (Manual) Differential Comment WBC Morphology (NORMAL) Platelet Estimate (NORMAL) Platelet Morphology (NORMAL) RBC Morph Micro Appear (NORMAL) Sodium 135 (135-145) mmol/L Potassium 4.4 (3.5-5.0) mmol/L Chloride 99 L (101-111) mmol/L Carbon Dioxide 23 (21-32) mmol/L Anion Gap 13.0 (6-13) BUN 17 (6-20) mg/dL Creatinine 0.6 (0.4-1.0) mg/dL Estimated GFR (MDRD) 99 (>89) Glucose 159 H (70-100) mg/dL Calcium 9.2 (8.5-10.3) mg/dL Last Dose Date Last Dose Time Vancomycin Trough (10.0-20.0) ug/mL ABX Reporting Has patient been on IV antibiotics over the past 48 hours?: Yes Sepsis Event Note (H) - Evaluation Current Stage of Sepsis: Resolved Possible source of Sepsis: positive: Pulmonary - Sepsis Criteria Sepsis Criteria: Recorded Temperature greater than 38.3C or Less than 36C, Recorded Heart Rate greater than 90 bpm, Recorded Respiratory Rate greater than 20, Respiratory: Increasing oxygen requirements, WBC count greater than 10% bands Assessment/Plan - Problem List (1) Sepsis Impression: Resolved This lady presents is a 68-year-old former smoker who is a current alcohol abuser that leaves her immunocompromised, with a sudden complaints of frontal sinus headache, chest tightness and burning, new cough for 24 to 48 hours, sore throat, superimposed on sinus infection for the last 4 months. She meets sepsis criteria with a relatively normal chest x-ray, and negative belly exam. Lactic acid was 2.8. CT of sinus April 2018 no had mild mucosal thickening in the bilateral maxillary and left ethmoid sinus. But nothing that was severe. CT of chest done the same day as her sinuses show subtle bronchiectasis of the right middle lobe and lingular region. Pulmonary background demonstrated a mild amount of upper lobe predominant emphysema. Urinalysis had glucosuria, ketones, small amount of blood but no infection Lactic acid 2.8>2.8>2.4>0.9 WBC 29K>15K>19.1 today hypothermia resolved. Plan: -Sepsis protocol intiated and completed. -Broad-spectrum empiric antibiotic for an unknown pathogen although I suspect this to be pulmonary or ENT by ROS. Day #3 of cefepime, metronidazole, vancomycin. Now that she has grown out beta hemolytic strep, group A, I am changing her to Ancef. I did initially order penicillin but for cost and ease of use I will use Ancef. -Advance care planning discussion documented in separate note with -I am concerned about her continued WBC elevation, but she has no fever and her hypoxia is gone. If she remains stable on oral today, dc in am. Qualifiers: Sepsis type: sepsis due to unspecified organism Qualified Code(s): A41.9 - Sepsis, unspecified organism (2) Acute respiratory failure with hypoxemia resolved. Conclusion/Plan: Due to a combination of her COPD and most likely lung source pathogen for sepsis. Although was not visible on chest x-ray and BNP indicates no congestive heart failure. She is a full code. Her does want her intubated if she needs to be. We will monitor closely over the next few hours. So far she is improving and cooperates enough to maintain 02 sats. No need for her to be transferred to ICU for BiPAP and then intubation if necessary. Transition to oral steroid taper. Oral meds. Will not need O2 based on sats today. Add nebulizers to her home regimen. (3) COPD with exacerbation, exacerbation resolved. Conclusion/Plan: No longer sitting up in tripod position and quite, quite verbal without morales. -Broad-spectrum antibiotic coverage per sepsis protocol. Not necessarily pulmonary pathogen. I have adjusted antibiotics on the basis of cultures when they arrive. She has improved and I hope to dc in am. -Fixed scheduled dose DuoNeb. -IV steroids to be discontinued, transition to oral for today and tomorrow -Sputum able to be induced yesterday, received and being processed. -Oxygen by nasal cannula or facemask. -Patient is a full code, she will need to be intubated if required (4) Alcoholic dementia Conclusion/Plan: She has never gone through withdrawal according to her . But her drinking has been steady since the age of 35. She has been recently placed on Seroquel without success. Behavior was escalating in the emergency room and on MedSurg because she refused to do treatment. She was ripping off the mask and demanding to go home. By late evening, she was calm and has remained cooperative thru the night and today. Plan: -Thiamine, folate, B12, magnesium via CIWA protocol, s/p day #2 bannana bag and we will switch to po vitamins this am -Haldol 1 mg IV push every 8 hours prn and has received only one dose ~1700 on 12/06. Will change to IM so we can avoid needing an EKG. -Resumed her usual Seroquel but w continued behavior, will increased to 50 mg po bid. -we have monitored vitals and agitation to make sure she is not going through withdrawal and I think her behavior is all organic from brain effects of pr olonged alcohol abuse and not withdrawal. -I have strongly recommended that her stop buying her alcohol. If she is going to go through withdrawal during this hospitalization, do not prolong t he state if he buys or more alcohol again. Qualifiers: Dementia behavioral disturbance: with behavioral disturbance Qualified Code(s): F10.27 - Alcohol dependence with alcohol-induced persisting dementia (5) Hyponatremia resolved. Conclusion/Plan: This is in a patient who has history of alcohol abuse. She is never been documented as having cirrhosis, ascites. However, she had black tarry stools a year ago and she may have undiagnosed esophageal varices. Sodium could be related to cirrhosis or could be related to dehydration and patient has poor p.o. intake. Plan: Hydrated with IVP and repeat BMP yesterday and today shows nml sodium. Check US for status of liver. That was done this am and report pending. I review. (6) History of atrial fibrillation Conclusion/Plan: She has had intermittent, paroxysmal atrial fibrillation. Dates back to a decad e of palpitations but not formally seen until an ER visit in 2017. Transferred from here to [facility] since we had no ICU beds. IA ruled out. Today troponins are negative. She is in sinus tachycardia on her EKG. She does have a chads Vascor of 3 but she refuses anticoagulation. In view the fact that she may have an unknown GI pathology with bleeding, it is probably prudent decision. I will resume her usual Cardizem but avoid beta-fer since I am going to be giving her beta agonist. Resume betablocker as well as her cardizem. Held off on losartan but will resume now. (7) HTN (hypertension) Conclusion/Plan: She became hypotensive in the emergency room with her sepsis. I will wait till later in the evening once her blood pressure stabilized to give her her Cardizem for her heart rate. Pulse is been between 75-87 since last night. Blood pressure [id number]/70-95. Will resume her losartan. Qualifiers: Hypertension type: essential hypertension Qualified Code(s): I10 - Essential (primary) hypertension (8) Alcohol abuse Conclusion/Plan: As per treatment in alcoholic dementia. Qualifiers: Qualified Code(s): A41.9 - Sepsis, unspecified organism Qualifiers: Qualified Code(s): A41.9 - Sepsis, unspecified organism
[2018-12-08] MEDS: QUEtiapine 25 MG TABLET PO SCH ×2 (11:27→20:42)
[2018-12-08] MEDS: MULTIVITAMIN 10 ML, THIAMINE INJ 100 MG, FOLIC ACID INJ 1 MG in SODIUM CHLORIDE 0.9% 1,... IV SCH (11:27)
[2018-12-08] MEDS: ceFAZolin 1 GM in SODIUM CHLORIDE 0.9% MINIBAG 100 ML IV SCH ×2 (11:28→20:28)
--- NOTE | 2018-12-08 11:53 | Ultrasound Report ---
Reason: alcohol abuse, melena, hyponatremia Procedure Date: 12/08/2018 Accession Number: [id number] / [id number] Procedure: US - Abdomen Complete CPT Code: FULL RESULT: EXAM: ABDOMEN ULTRASOUND EXAM DATE: 12/08/2018 07:56 AM. CLINICAL HISTORY: Alcohol abuse, melena, hyponatremia. COMPARISON: None. TECHNIQUE: Real-time scanning was performed with static images obtained. FINDINGS: Liver: Liver parenchyma is heterogeneous and moderately hyperechoic. No discrete liver masses or intrahepatic bile duct dilation. However, evaluation for masses is limited secondary to the echogenicity. Right liver measures 20.8 cm. Main portal vein flow: Hepatopetal. Gallbladder: No stones, wall thickening, or sonographic Kearney's sign. Unable to acquire images and decubitus position given patient refusal. Biliary System: Common bile duct measures 5 mm. No intrahepatic or extrahepatic ductal dilatation. Pancreas: Largely obscured by bowel gas. Given the limitations, no gross abnormality identified. Kidneys: Right: 9.5 cm longitudinally. No stones or hydronephrosis. Irregularly shaped hypoechoic exophytic inferior right renal cystic structure measures 1.6 x 1.3 x 1.7 cm. This is not well characterized. No definite mural nodules or thickened septations are noted. Left: 9.7 cm longitudinally. No contour-deforming mass, stones, or hydronephrosis. Spleen: 7.5 cm. Normal in size and echotexture. Limited visualization due to patient factors. Aorta and Inferior Vena Cava: No aneurysm. Diffuse atheromatous plaques. Normal IVC. Other: Significant limitations due to suboptimal patient cooperation and mobility. IMPRESSION: 1. Moderately echogenic enlarged fatty liver. No mass. 2. Pancreas largely obscured by bowel gas. Limited visualization of the gallbladder. Given the limitations, no focal gallbladder abnormality. Normal caliber common bile duct. 3. Irregularly shaped hypoechoic indeterminate inferior right renal 1.7 cm cyst. Recommend contrast-enhanced CT evaluation on an outpatient basis. [facility]
[2018-12-08] MEDS ORDERED: predniSONE 20 MG TABLET PO SCH (12:00)
[2018-12-08] MEDS: LOSARTAN 50 MG TABLET PO SCH (12:32)
[2018-12-08] MEDS ORDERED: VANCOMYCIN INJ 1 GM in SODIUM CHLORIDE 0.9% 250 ML IV SCH (14:00)
[2018-12-08] MEDS: PRENATAL VITAMIN TABLET PO SCH (14:57)
[2018-12-08] MEDS: MORPHINE 2 MG/ML CARPUJECT IVP PRN ×2 (16:32→22:34)
[2018-12-08] MEDS: SODIUM CHLORIDE FLUSH 0.9% 10 ML SYRINGE IVP PRN ×2 (16:33→22:35)
[2018-12-09] MEDS: SODIUM CHLORIDE FLUSH 0.9% 10 ML SYRINGE IVP SCH ×2 (01:31→08:46)
[2018-12-09] MEDS: ceFAZolin 1 GM in SODIUM CHLORIDE 0.9% MINIBAG 100 ML IV SCH (04:11)
[2018-12-09 05:29] LABS: BASOPHILS % (AUTO) 0.1 %; EOSINOPHILS % (AUTO) 0.7 %; HGB - HEMOGLOBIN 10.5 g/dL (12.0-16.0); LYMPHOCYTES % (AUTO) 4.6 %; MEAN CORPUSCULAR HGB CONC 34.1 g/dL (32.0-36.0); MEAN CORPUSCULAR VOLUME 105.5 fL (81.0-99.0); MEAN PLATELET VOLUME 9.9 fL (7.9-10.8); MONOCYTES % (AUTO) 5.2 %; PLT - PLATELET COUNT 244 10^3/uL (130-450); RED BLOOD COUNT 2.92 10^6/uL (4.20-5.40); RED CELL DISTRIBUTION WIDTH 13.2 % (12.0-15.0); WHITE BLOOD COUNT 20.1 x10^3/uL (4.8-10.8)
[2018-12-09 05:31] LABS: ABNORMAL LYMPHS % (MANUAL) 0 %; BAND NEUTROPHILS % (MANUAL) 0 %
[2018-12-09 05:48] LABS: LYMPHOCYTES # (MANUAL) 0.8 10^3/uL (1.5-3.5); LYMPHOCYTES % (MANUAL) 4 %; MONOCYTES # (MANUAL) 0.6 10^3/uL (0.0-1.0); NEUTROPHILS # (MANUAL) 18.7 10^3/uL (1.5-6.6); NEUTROPHILS % (MANUAL) 93 %
[2018-12-09 05:51] LABS: DIFFERENTIAL COMMENT MANUAL DIFFERENTIAL; PLATELET ESTIMATE, MANUAL NORMAL (130-450,000) (NORMAL); PLATELET MORPHOLOGY A (NORMAL); RBC MORPHOLOGY (MULTIPLE) NORMAL APPEARANCE (NORMAL)
[2018-12-09] MEDS ORDERED: predniSONE 10 MG TABLET PO SCH (07:00)
[2018-12-09] MEDS ORDERED: predniSONE 10 MG TABLET PO ONE (07:00)
[2018-12-09 07:43] VITALS: BP 159/89
--- NOTE | 2018-12-09 07:44 | Discharge Plan ---
Discharge Plan Problem Reviewed?: Yes Disposition: Home, Self Care Condition: Stable Prescriptions: Ipratropium/Albuterol [Duoneb] 3 ml INH RTQID #120 neb Penicillin Vk 500 mg PO Q6H 4 Days #32 tablet QUEtiapine [SEROquel] 50 mg PO BID #120 tablet Diet: Regular Activity Restrictions: Activity as Tolerated Shower Restrictions: No Driving Restrictions: Yes (no driving because of memory loss) Health Concerns: You were admitted to the hospital because of not feeling well, chest tightness, chest burning and a severe cough for 24 to 48 hours. You are also been complaining of a sinus problem for the last 4 months. We found you to have a severe infection. Cultures eventually grew out beta-hemolytic Streptococcus group A in your throat. This may have caused you to have severe exacerbation of your emphysema which you have from smoking. During your stay, your memory loss was really bothering you and cause you to have yelling, cursing, and unhappiness of being at the hospital. You are on Seroquel and we increased your Seroquel from 25 mg twice a day to 50 mg twice a day Plan of Treatment: 1. We would like you to start taking DuoNeb, another nebulizer, 3-4 times a day. This will help stabilize your emphysema. 2. Finish your antibiotics completely 3. See your primary care provider in the next week to 2 weeks 4. Your and I spoke at length about how unhappy you are as your health has deteriorated over the last few years. I would like you, your children, and your to sit down and discuss care goals. Educate yourself about your disease and how it will progress. Make decisions on where you want to be taking care of as your illness gets the best of you. Do you want to live at home or a retirement facility? If you live at home will be hiring private duty in- home providers? If you leave it in a snf, at what point would you consider your quality of life so diminished that you do not want to get continued care? These are preliminary questions that may take you some time to answer. But try and have these thoughtful, difficult conversations. Care Goals: 1. To completely treat your throat infection 2. To stabilize your emphysema so you are not nearly short of breath 3. To stabilize your mood swings so it easier for your to take care of you Assessment: Patient's dementia precludes complete understanding, but expresses understanding with the her current disease status and prognosis. No Smoking: If you smoke, Please STOP! Call for help. Follow-up with: Lizzy Jung DO [Primary Care Provider] -
[2018-12-09] MEDS: IPRATROPIUM/ALBUTEROL 3 ML NEB INH SCH (08:04)
[2018-12-09] MEDS: METOPROLOL TARTRATE 50 MG TABLET PO SCH (08:45)
[2018-12-09] MEDS: PRENATAL VITAMIN TABLET PO SCH (08:45)
[2018-12-09] MEDS: LOSARTAN 50 MG TABLET PO SCH (08:45)
[2018-12-09] MEDS: DOCUSATE SODIUM 250 MG CAPSULE PO SCH (08:45)
[2018-12-09] MEDS: QUEtiapine 25 MG TABLET PO SCH (08:45)
[2018-12-09] MEDS: POLYETHYLENE GLYCOL 3350 17 GM PACKET PO SCH (08:46)
[2018-12-09] MEDS: SENNA 8.6 MG TABLET PO SCH (08:46)
[2018-12-09] MEDS: ENOXAPARIN 40 MG/0.4 ML SYRINGE SUBQ SCH (08:46)
[2018-12-09] MEDS: LEVOTHYROXINE 25 MCG TABLET PO SCH (08:46)
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
== END 2018-12-09 10:42 | disposition home or self-care (01) | DRG 871 ==
LOC: ED 11:53 → MS2 14:50
PROVIDERS: ADMIT Specialist; ATTEND Specialist
DX: A41.9 Sepsis, unspecified organism (principal); J18.1 Lobar pneumonia, unspecified organism; J44.0 Chronic obstructive pulmonary disease with (acute) lower respiratory infection; J44.1 Chronic obstructive pulmonary disease with (acute) exacerbation; R09.02 Hypoxemia; F03.90 Unspecified dementia, unspecified severity, without behavioral disturbance, psychotic disturbance, mood disturbance, and anxiety; I10 Essential (primary) hypertension; A40.0 Sepsis due to streptococcus, group A; J96.01 Acute respiratory failure with hypoxia; E87.1 Hypo-osmolality and hyponatremia; J47.1 Bronchiectasis with (acute) exacerbation; F10.27 Alcohol dependence with alcohol-induced persisting dementia; F10.280 Alcohol dependence with alcohol-induced anxiety disorder; F10.24 Alcohol dependence with alcohol-induced mood disorder; J43.9 Emphysema, unspecified; J02.0 Streptococcal pharyngitis; J32.1 Chronic frontal sinusitis; I95.9 Hypotension, unspecified; E86.0 Dehydration; N28.9 Disorder of kidney and ureter, unspecified; R63.0 Anorexia; I48.0 Paroxysmal atrial fibrillation; I11.9 Hypertensive heart disease without heart failure; F32.9 Major depressive disorder, single episode, unspecified; Z66 Do not resuscitate; Z78.1 Physical restraint status; Z87.19 Personal history of other diseases of the digestive system; Z87.891 Personal history of nicotine dependence; Z79.899 Other long term (current) drug therapy; Z91.81 History of falling; Z68.21 Body mass index [BMI] 21.0-21.9, adult; Z81.1 Family history of alcohol abuse and dependence
CPT/HCPCS: 36415; 71045; 76700; 80048; 80053; 80202; 81001; 83605; 83690; 83880; 84484; 85025; 87040; 87070; 87077; 87205; 87430; 93005; 94640; 94644; 94645; 96365; 96375; 99285; A9270; J1650; J2060; J3370; J3411; J7512; 80306; 80320; 81003; 87086

== ENCOUNTER 2019-06-27 07:00 | Outpatient (CLI) | payer MEDICARE ==
[2019-06-27 18:49] LABS: BASOPHILS # (AUTO) 0.1 10^3/uL (0.0-0.1); BASOPHILS % (AUTO) 1.2 %; EOSINOPHILS # (AUTO) 0.1 10^3/uL (0.0-0.7); EOSINOPHILS % (AUTO) 1.4 %; HGB - HEMOGLOBIN 16.1 g/dL (12.0-16.0); LYMPHOCYTES # (AUTO) 1.4 10^3/uL (1.5-3.5); LYMPHOCYTES % (AUTO) 16.8 %; MEAN CORPUSCULAR HEMOGLOBIN 34.8 pg (27.0-31.0); MEAN CORPUSCULAR HGB CONC 33.3 g/dL (32.0-36.0); MEAN CORPUSCULAR VOLUME 104.3 fL (81.0-99.0); MEAN PLATELET VOLUME 10.2 fL (7.9-10.8); MONOCYTES # (AUTO) 0.8 10^3/uL (0.0-1.0); MONOCYTES % (AUTO) 9.3 %; NEUTROPHILS % (AUTO) 70.9 %; PLT - PLATELET COUNT 294 10^3/uL (130-450); RED BLOOD COUNT 4.63 10^6/uL (4.20-5.40); RED CELL DISTRIBUTION WIDTH 12.7 % (12.0-15.0); WHITE BLOOD COUNT 8.5 x10^3/uL (4.8-10.8)
[2019-06-27 19:08] LABS: ALBUMIN 4.2 g/dL (3.2-5.5); ALBUMIN/GLOBULIN RATIO 1.4 (1.0-2.2); ALKALINE PHOSPHATASE 81 IU/L (42-121); ALT ALANINE AMINOTRANSFERASE < 10 IU/L (10-60); AST ASPARTATE AMINOTRANSFERASE 16 IU/L (10-42); BILIRUBIN,TOTAL 0.8 mg/dL (0.2-1.0); BUN - BLOOD UREA NITROGEN 15 mg/dL (6-20); CALCIUM 9.6 mg/dL (8.5-10.3); CARBON DIOXIDE - CO2 27 mmol/L (21-32); CHLORIDE 96 mmol/L (101-111); CREATININE 0.8 mg/dL (0.4-1.0); GFR - MDRD 71 (>89); GLUCOSE 100 mg/dL (70-100); SODIUM 134 mmol/L (135-145); TOTAL PROTEIN 7.3 g/dL (6.7-8.2)
== END 2019-06-27 23:59 | disposition home or self-care (01) ==
LOC: LAB.WCP 07:00
PROVIDERS: ATTEND Family Medicine
DX: I10 Essential (primary) hypertension (principal); E03.9 Hypothyroidism, unspecified
CPT/HCPCS: 36415; 80053; 84443; 85025

== ENCOUNTER 2019-07-27 11:41 | Outpatient (CLI) | payer MEDICARE | END 2019-07-27 11:42 | disposition critical access hospital (66) | LOC: EMS 11:41 | PROVIDERS: ATTEND Surgery | DX: S39.93XA Unspecified injury of pelvis, initial encounter (principal); S09.90XA Unspecified injury of head, initial encounter; W10.8XXA Fall (on) (from) other stairs and steps, initial encounter; Y92.008 Other place in unspecified non-institutional (private) residence as the place of occurrence of the external cause | CPT/HCPCS: A0425; A0429 ==

== ENCOUNTER 2019-08-05 13:18 | Outpatient (CLI) | payer MEDICARE ==
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
== END 2019-08-05 13:19 | disposition home or self-care (01) ==
LOC: DI 13:18
PROVIDERS: ATTEND Family Medicine
DX: R60.0 Localized edema (principal); Z87.81 Personal history of (healed) traumatic fracture

== ENCOUNTER 2020-09-23 08:00 | Outpatient (CLI) | payer MEDICARE ==
[2020-09-23 18:49] LABS: BASOPHILS # (AUTO) 0.1 10^3/uL (0.0-0.1); BASOPHILS % (AUTO) 1.1 %; EOSINOPHILS # (AUTO) 0.1 10^3/uL (0.0-0.7); EOSINOPHILS % (AUTO) 1.6 %; HCT - HEMATOCRIT 42.1 % (37.0-47.0); HGB - HEMOGLOBIN 14.5 g/dL (12.0-16.0); LYMPHOCYTES # (AUTO) 1.8 10^3/uL (1.5-3.5); LYMPHOCYTES % (AUTO) 25.7 %; MEAN CORPUSCULAR HEMOGLOBIN 35.5 pg (27.0-31.0); MEAN CORPUSCULAR HGB CONC 34.4 g/dL (32.0-36.0); MEAN CORPUSCULAR VOLUME 102.9 fL (81.0-99.0); MEAN PLATELET VOLUME 10.1 fL (7.9-10.8); MONOCYTES # (AUTO) 0.6 10^3/uL (0.0-1.0); MONOCYTES % (AUTO) 8.9 %; NEUTROPHILS # (AUTO) 4.3 10^3/uL (1.5-6.6); NEUTROPHILS % (AUTO) 62.4 %; PLT - PLATELET COUNT 272 10^3/uL (130-450); RED BLOOD COUNT 4.09 10^6/uL (4.20-5.40); RED CELL DISTRIBUTION WIDTH 12.9 % (12.0-15.0)
[2020-09-23 19:22] LABS: THYROID STIMULATING HORMONE 2.46 uIU/mL (0.34-5.60)
[2020-09-23 19:28] LABS: FERRITIN 50.7 ng/mL (11.0-306.8)
[2020-09-23 19:52] LABS: HDL CHOLESTEROL 150 mg/dL
[2020-09-23 19:53] LABS: % IRON SATURATION 27 % (20-50); ALBUMIN 4.5 g/dL (3.2-5.5); ALBUMIN/GLOBULIN RATIO 1.7 (1.0-2.2); ALKALINE PHOSPHATASE 69 IU/L (42-121); ALT ALANINE AMINOTRANSFERASE 11 IU/L (10-60); AST ASPARTATE AMINOTRANSFERASE 17 IU/L (10-42); BILIRUBIN,TOTAL 1.2 mg/dL (0.2-1.0); BUN - BLOOD UREA NITROGEN 10 mg/dL (6-20); CALCIUM 9.7 mg/dL (8.5-10.3); CARBON DIOXIDE - CO2 27 mmol/L (21-32); CHLORIDE 96 mmol/L (101-111); CHOL/HDL RATIO 1.6 (<4.4); CHOLESTEROL 247 mg/dL; CREATININE 0.6 mg/dL (0.4-1.0); GFR - MDRD 99 (>89); GLUCOSE 101 mg/dL (70-100); IRON 90 ug/dL (28-170); LDL CHOLESTEROL,CALCULATED 86 mg/dL; LDL/HDL RATIO 0.6 (<4.4); POTASSIUM 4.4 mmol/L (3.5-5.0); SODIUM 133 mmol/L (135-145); TOTAL IRON BINDING CAPACITY 337 ug/dL (250-450); TOTAL PROTEIN 7.1 g/dL (6.7-8.2); TRANSFERRIN 241 mg/dL (192-382); TRIGLYCERIDES 56 mg/dL; VLDL CHOLESTEROL 11 mg/dL
== END 2020-09-23 23:59 | disposition home or self-care (01) ==
LOC: LAB.WCP 08:00
PROVIDERS: ATTEND Family Medicine
DX: D50.9 Iron deficiency anemia, unspecified (principal); E78.5 Hyperlipidemia, unspecified; E03.9 Hypothyroidism, unspecified
CPT/HCPCS: 36415; 80053; 80061; 82728; 83540; 83721; 84443; 84466; 85025

== ENCOUNTER 2021-06-22 08:00 | Outpatient (CLI) | payer MEDICARE ==
[2021-06-22 18:25] LABS: BASOPHILS # (AUTO) 0.1 10^3/uL (0.0-0.1); BASOPHILS % (AUTO) 1.7 %; EOSINOPHILS # (AUTO) 0.3 10^3/uL (0.0-0.7); EOSINOPHILS % (AUTO) 4.8 %; HCT - HEMATOCRIT 45.7 % (37.0-47.0); LYMPHOCYTES # (AUTO) 1.1 10^3/uL (1.5-3.5); LYMPHOCYTES % (AUTO) 18.3 %; MEAN CORPUSCULAR HEMOGLOBIN 32.3 pg (27.0-31.0); MEAN CORPUSCULAR HGB CONC 32.8 g/dL (32.0-36.0); MEAN CORPUSCULAR VOLUME 98.3 fL (81.0-99.0); MEAN PLATELET VOLUME 10.2 fL (7.9-10.8); MONOCYTES # (AUTO) 0.5 10^3/uL (0.0-1.0); MONOCYTES % (AUTO) 8.3 %; NEUTROPHILS % (AUTO) 66.6 %; PLT - PLATELET COUNT 308 10^3/uL (130-450); RED BLOOD COUNT 4.65 10^6/uL (4.20-5.40); RED CELL DISTRIBUTION WIDTH 12.6 % (12.0-15.0); WHITE BLOOD COUNT 6.1 x10^3/uL (4.8-10.8)
[2021-06-22 19:00] LABS: ALBUMIN 4.1 g/dL (3.2-5.5); ALBUMIN/GLOBULIN RATIO 1.2 (1.0-2.2); BILIRUBIN,TOTAL 0.8 mg/dL (0.2-1.0); CALCIUM 9.5 mg/dL (8.5-10.3); CREATININE 0.6 mg/dL (0.4-1.0); POTASSIUM 4.4 mmol/L (3.5-5.0); TOTAL PROTEIN 7.4 g/dL (6.7-8.2)
[2021-06-22 19:10] LABS: THYROID STIMULATING HORMONE 2.5 uIU/mL (0.34-5.60)
== END 2021-06-22 23:59 | disposition home or self-care (01) ==
LOC: LAB.WCP 08:00
PROVIDERS: ATTEND Family Medicine
DX: I10 Essential (primary) hypertension (principal); E03.9 Hypothyroidism, unspecified
CPT/HCPCS: 36415; 80053; 84443; 85025

== ENCOUNTER 2022-06-27 09:40 | Outpatient (CLI) | payer MEDICARE ==
[2022-06-27 11:57] LABS: BASOPHILS # (AUTO) 0.1 10^3/uL (0.0-0.1); BASOPHILS % (AUTO) 1.4 %; EOSINOPHILS # (AUTO) 1.2 10^3/uL (0.0-0.7); EOSINOPHILS % (AUTO) 15.3 %; HCT - HEMATOCRIT 48.2 % (37.0-47.0); HGB - HEMOGLOBIN 15.3 g/dL (12.0-16.0); LYMPHOCYTES # (AUTO) 1.5 10^3/uL (1.5-3.5); LYMPHOCYTES % (AUTO) 18.6 %; MEAN CORPUSCULAR HEMOGLOBIN 31.8 pg (27.0-31.0); MEAN CORPUSCULAR HGB CONC 31.7 g/dL (32.0-36.0); MEAN CORPUSCULAR VOLUME 100.2 fL (81.0-99.0); MEAN PLATELET VOLUME 10.4 fL (7.9-10.8); MONOCYTES # (AUTO) 0.7 10^3/uL (0.0-1.0); MONOCYTES % (AUTO) 8.3 %; NEUTROPHILS # (AUTO) 4.5 10^3/uL (1.5-6.6); NEUTROPHILS % (AUTO) 56.3 %; PLT - PLATELET COUNT 290 10^3/uL (130-450); RED BLOOD COUNT 4.81 10^6/uL (4.20-5.40); RED CELL DISTRIBUTION WIDTH 13.4 % (12.0-15.0)
[2022-06-27 11:58] LABS: SLIDE REVIEW? Indicated
[2022-06-27 12:09] LABS: ALBUMIN 3.7 g/dL (3.2-5.5); ALBUMIN/GLOBULIN RATIO 1.1 (1.0-2.2); ALKALINE PHOSPHATASE 74 IU/L (42-121); ALT ALANINE AMINOTRANSFERASE < 10 IU/L (10-60); AST ASPARTATE AMINOTRANSFERASE 19 IU/L (10-42); BILIRUBIN,TOTAL 1.2 mg/dL (0.2-1.0); BUN - BLOOD UREA NITROGEN 10 mg/dL (6-20); CALCIUM 9.2 mg/dL (8.5-10.3); CARBON DIOXIDE - CO2 27 mmol/L (21-32); CHLORIDE 98 mmol/L (101-111); CHOL/HDL RATIO 2.9 (<4.4); CHOLESTEROL 214 mg/dL; CREATININE 0.7 mg/dL (0.4-1.0); GFR - MDRD 82 (>89); GLUCOSE 96 mg/dL (70-100); HDL CHOLESTEROL 74 mg/dL; LDL CHOLESTEROL,CALCULATED 126 mg/dL; LDL/HDL RATIO 1.7 (<4.4); SODIUM 136 mmol/L (135-145); TOTAL PROTEIN 7.1 g/dL (6.7-8.2); TRIGLYCERIDES 72 mg/dL; VLDL CHOLESTEROL 14 mg/dL
[2022-06-27 13:08] LABS: THYROID STIMULATING HORMONE 3.71 uIU/mL (0.34-5.60)
== END 2022-06-27 09:41 | disposition home or self-care (01) ==
LOC: LAB.N 09:40
PROVIDERS: ATTEND Physician Assistant
DX: I10 Essential (primary) hypertension (principal); E78.5 Hyperlipidemia, unspecified; E03.9 Hypothyroidism, unspecified
CPT/HCPCS: 36415; 80053; 80061; 83721; 84443; 85025